=== PATIENT | female | born 1950 | race Caucasian/White ===

== ENCOUNTER 2023-03-08 10:42 | Outpatient (OUT) | payer MEDICARE, SELFPAY ==
--- NOTE | 2023-03-08 10:50 | MM_ITS ---
Patient: EMILIE CONNER Exam Date: 03/08/2023 : 1950 Gender:F Ordering : Non-Staff Physician Admission #: [id number] Family : Order #: [id number] CLICK HERE TO VIEW EXAM RADIOLOGY REPORT PROCEDURE: MM TOMOSYNTHESIS SCREENING BI COMPARISON: MG MAMM SCREEN RAY W CAD, 02/02/2022. MAMMO RT DX, 02/14/2022. INDICATIONS: Screening for malignant neoplasm Calculator Name NCI Breast Cancer Risk Assessment Tool 5 Year Breast Cancer Risk 1.40% Lifetime Breast Cancer Risk 4.00% Personal Breast Cancer No Personal Ovarian Cancer No Treatments None Family Cancers Aunt-maternal with breast cancer at age 38; Father with blood cancer at age 61; Daughter with kidney cancer at age 28. LOCATION: [facility] [place] BREAST COMPOSITION: Scattered areas fibroglandular density. FINDINGS: DIAGNOSTIC CATEGORY 1--NEGATIVE. NO CHANGE FROM COMPARISON ASSESSMENT. Scattered benign-appearing calcifications are present. Scattered benign-appearing lymph nodes are present. RIGHT BREAST: No significant suspicious finding. LEFT BREAST: No significant suspicious finding. RECOMMENDATIONS: ROUTINE MAMMOGRAM AND CLINICAL EVALUATION IN 12 MONTHS. PLEASE NOTE: A NORMAL MAMMOGRAM DOES NOT EXCLUDE THE POSSIBILITY OF BREAST CANCER. A CLINICALLY SUSPICIOUS PALPABLE LUMP SHOULD BE BIOPSIED. Dictated by: Jason Mayorga MD on 03/09/2023 at 08:19 Approved by: Jason Mayorga MD on 03/09/2023 at 08:20
== END 2023-03-08 10:43 | disposition home or self-care (01) ==
LOC: MAMMO 10:45
DX: Z12.31 Encounter for screening mammogram for malignant neoplasm of breast (principal); Z80.3 Family history of malignant neoplasm of breast; Z80.51 Family history of malignant neoplasm of kidney; Z80.8 Family history of malignant neoplasm of other organs or systems
CPT/HCPCS: 77063; 77067

== ENCOUNTER 2024-03-18 09:10 | Outpatient (OUT) | payer MEDICARE, SELFPAY ==
--- OUTSIDE RECORDS SUMMARY | 2024-03-18 09:14 | XMS_ITS | CCD ---
Author Organization [facility] Inform ion Partnership [facility] Care Team Providers Care Straightening Machine Feeder Name Role Phone Bhavesh Jaz Shell Attending Unavailable IlTamie rice Primary Care Unavailable Jocelynn Hinojosa Unavailable Arianne Grubbs Unavailable Garett FRY-ELIZABETH Thanh Primary Care Provider BAJWA, THANH K Referring Unavailable BAJWA, THANH K Primary Care Unavailable BAJWA, THANH Attending Unavailable BAJWA, THANH Referring Unavailable BAJWA, THANH Primary Care Unavailable BAJWA, THANH Attending Unavailable BAJWA, THANH Referring Unavailable BAJWA, THANH Primary Care Unavailable BAJWA, THANH Attending Unavailable BAJWA, THANH Referring Unavailable BAJWA, THANH Primary Care Unavailable Allergies Allergy Classification Reported Allergen(s) Allergy Type Date of Onset Reaction(s) Facility (4 sources) Latex; Translations: [LATEX] Propensity to adverse reactions to drug 3 Other (See Comments) [facility] Medications Current Medications Medication Drug Class(es) Dates Sig (Normalized) Sig (Original) [id number] 200 actuat albuterol 0.09 mg/actuat metered dose inhaler (3 sources) beta2-Adrenergic Agonist Start: 05-28-2023 take 2 puff(s) by inhalation every six hours as needed for wheezing albuterol (PROVENTIL HFA;VENTOLIN HFA) 90 mcg/actuation inhaler Indications: Shortness of breath Inhale 2 puffs every 6 (six) hours as needed for wheezing. 18 g 1 05/28/2023 Active Start: 10-24-2021 take 2 puff(s) by in halation every four hours as needed Albuterol Sulfate HFA 108 (90 Base) MCG/ACT 2 puffs as needed Inhalation every 4 hrs Oct, Active amLODIPine 10 mg oral tablet (2 sources) Dihydropyridine Calcium Channel Victorino Start: 01-23-2024 take 1 tablet by mouth in the morning amLODIPine (NORVASC) 10 mg tablet Take 1 tablet (10 mg total) by mouth in the morning. 90 tablet 3 01/23/2024 Active take 1 tablet by mouth in the mo rning amLODIPine (NORVASC) 10 mg tablet Take 1 tablet (10 mg total) by mouth in the morning. 0 Active amoxicillin 875 mg / clavulanate 125 mg oral tablet (2 sources) Penicillin-class Antibacterial Start: 05-28-2023 End: 06-04-2023 take 1 tablet by mouth once in the morning amoxicillin-pot clavulanate (AUGMENTIN) 875-125 mg per tablet Take 1 tablet by mouth in the morning and 1 tablet before bedtime. Do all this for 7 days. 14 tablet 0 05/28/2023 06/04/2023 Active Start: 08-17-2021 take 1 tablet by emmett th every twelve hours Amoxicillin-Pot Clavulanate 875-125 MG 1 tablet Orally every 12 hrs for 10 day(s) Jul, Active azithromycin 250 mg oral tablet (1 source) Macrolide Antimicrobial Start: 03-05-2024 End: 03-10-2024 take 1 tablet by mouth in the morning, then take 2 tablets by mouth once daily, then take 1 tablet by mouth once daily azithromycin (ZITHROMAX) 250 mg tablet Take 1 tablet (250 mg total) by mouth in the morning for 5 days. Take 2 tablets the first day, then 1 tablet daily for 4 days.. 6 tablet 03/05/2024 03/10/2024 Active calcium carbonate 1250 mg chewable tablet (2 sources) calcium carbonat e (OS-ZI) 500 mg calcium (1,250 mg) chewable tablet Chew 2 tablets (1,000 mg total) and swallow in the morning. Active cholecalciferol 0.125 mg oral capsule (2 sources) Vitamin D Start: 01-24-2024 take 1 capsule by mouth in the morning cholecalciferol, vitamin D3, (VITAMIN D3) 5,000 units capsule Take 1 capsule (5,000 Units total) by mouth in the morning. 90 capsule 01/24/2024 Active take 1 capsule by [facility] in the morning cholecalciferol, vitamin D3, (VITAMIN D3 ) 5,000 units capsule Take 1 capsule (5,000 Units total) by mouth in the morning. 0 Active codeine phosphate 2 mg/ml / guaiFENesin 20 mg/ml oral solution (1 source) Opioid Agonist Start: 10-24-2021 guaiFENesin-Codeine 100-10 MG/5ML 5 ml as needed EVERY [address] OR OPERATE HEAVY MACHINERY Oct, Active fluticasone propionate 0.05 mg/actuat metered dose nasal spray (4 sources) Corticosteroid Start: 02-26-2023 End: 05-28-2023 take 1 spray(s) nasal route in the morning fluticasone propionate (FLONASE) 50 mcg/actuation nasal spray Administer 1 spray into each nostril in the morning. 15.8 mL 05/28/2023 Active Start: 08-17-2021 take 2 spray(s) nasa l route once daily Fluticasone Propionate 50 MCG/ACT 2 sprays Nasally Once a day for 14 day(s) Jul, Active 12 hr guaiFENesin 600 mg extended release oral tablet (1 source) Start: 05-28-2023 End: 06-04-2023 take 1 tablet by mouth once guaiFENesin (MUCINEX) 600 mg tablet extended release 12hr Take 1 tablet (600 mg total) by mouth every 12 (twelve) hours for 7 days. 14 tablet 0 05/28/2023 06/04/2023 Active meloxicam 7.5 mg oral tablet (1 source) Nonsteroidal Anti-inflammatory Drug Start: 01-23-2024 take 1 tablet by mouth in the morning meloxicam (MOBIC) 7.5 mg tablet Take 1 tablet (7.5 mg total) by mouth in the morning. 90 tablet 1 01/23/2024 Active methylPREDNISolone 4 mg oral tablet (5 sources) Corticosteroid Start: 03-05-2024 take 1 tablet by mouth in the morning methylPREDNISolone (MEDROL, MARISOL,) 4 mg tablet Take 1 tablet (4 mg total) by mouth in the morning. follow package directions. 21 tablet 03/05/2024 Active Start: 05-28-2023 End: 03-05-2024 methylPREDNISolone (MEDROL, MARISOL,) 4 mg tablet follow package directions 21 tablet 05/28/2023 03/05/2024 Discontinued (Duplicate Listing) Start: 05-28-2023 methylPREDNISo lone (MEDROL, MARISOL,) 4 mg tablet follow package directions 21 tablet 0 05/28/2023 Active Start: 10-24-2021 methylPREDNISo lone 4 MG as directed Orally Once a day for 6 days Oct, Active Start: 08-17-2021 Medrol 4 MG as directed Orally as directed for 6 days Jul, Active ondansetron 4 mg oral tablet (1 source) Serotonin-3 Receptor Antagonist Start: 10-24-2021 take 1 tablet by mouth every eight hours as needed Zofran ODT 4 MG 1 tablet on the tongue and allow to dissolve Orally every 8 hrs as needed for 4 days Oct, Active pantoprazole 20 mg delayed release oral tablet (1 source) Proton Pump Inhibitor Start: 01-23-2024 take 1 tablet by mouth in the morning pantoprazole (PROTONIX) 20 mg EC tablet Take 1 tablet (20 mg total) by mouth in the morning. 30 tablet 1 01/23/2024 Active rOPINIRole 0.5 mg oral tablet (2 sources) Nonergot Dopamine Agonist Start: 01-23-2024 take 1 tablet by mouth once daily at bedtime rOPINIRole (REQUIP) 0.5 mg tablet Indications: Restless leg Take 1 tablet (0.5 mg total) by mouth once daily at bedtime. 90 tablet 1 01/23/2024 Active Start: 04-30-2023 take 1 tablet by emmett once daily at bedtime rOPINIRole (REQUIP) 0.25 mg tablet Take 1 tablet (0.25 mg total) by mouth once daily at bedtime. 30 tablet 2 04/30/2023 Active vitamin b12 1 mg oral tablet (2 sources) Vitamin B12 take 5 tablets by mouth in the morning cyanocobalamin 1000 MCG tablet Take 5 tablets (5,000 mcg total) by mouth in the morning. Active Problems Active Problems Problem Classification Problem Date Documented Da te Episodic/Chronic Acute bronchitis (2 sources) Acute bronchitis; Translations: [Acute bronchitis, unspecified] 05-28-2023 Episodic Esophageal disorders (2 sources) Gastroesophageal reflux disease without esophagitis; Translations: [Gastro-esophageal reflux disease without esophagitis] Onset: 8 03-13-2018 Chronic Essential hypertension (2 sources) Essential hypertension; Translations: [Essential (primary) hypertension] Onset: 3 01-15-2023 Chronic Headache; including migraine (2 sources) Tension-type headache; Translations: [Tension-type headache, unspecified, not intractable] Onset: 8 04-25-2018 Chronic Nutritional deficiencies (4 sources) Vitamin D deficiency; Translations: [Vitamin D deficiency, unspecified] Onset: 8 07-16-2019 Chronic Nutritional deficiencies (2 sources) Vitamin B deficiency, unspecified; Translations: [Vitamin B deficiency, unspecified] Onset: 4 Episodic Osteoarthritis (3 sources) Degenerative joint disease involving multiple joints; Translations: [Polyosteoarthritis, unspecified] Onset: 0 12-04-2019 Chronic Other bone disease and musculoskeletal deformities (1 source) Other specified disorders of bone density and structure, other site; Translations: [Other specified disorders of bone density and structure, other site] Onset: 4 Episodic Other gastrointestinal disorders (2 sources) Irritable bowel syndrome with diarrhea; Translations: [Irritable bowel syndrome with diarrhea] Onset: 8 03-13-2018 Chronic Other hereditary and degenerative nervous system conditions (2 sources) Restless legs; Translations: [Restless legs syndrome] Onset: 8 03-13-2018 Chronic Other hereditary and degenerative nervous system conditions (2 sources) Restless legs syndrome; Translations: [Restless legs syndrome] Onset: 4 Chronic Other lower respiratory disease (1 source) Dyspnea; Translations: [Shortness of breath] 05-28-2023 Episodic Other non-traumatic joint disorders (2 sources) Finger joint locking; Translations: [Other specific joint derangements of unspecified hand, not elsewhere classified] Onset: 0 12-04-2019 Chronic Other screening for suspected conditions (not mental disorders or infectious disease) (12 sources) Patient encounter status; Translations: [Encounter for screening for lipoid disorders] Onset: 8 Resolved: 8 03-13-2018 Episodic Other upper respiratory disease (1 source) Pain in throat Onset: 4 Episodic Other upper respiratory infections (5 sources) Acute sinusitis, unspecified; Translations: [Acute maxillary sinusitis] Onset: 9 Resolved: 2 Episodic Unclassified (1 source) R21 - Rash and other nonspecific skin eruption; Translations: [R21 - Rash and other nonspecific skin eruption] Onset: 8 Unclassified (1 source) Medicare Annual Wellness Onset: 4 Past or Other Problems Problem Classification Problem Date Documented Date Episodic/Chronic Chronic obstructive pulmonary disease and bronchiectasis (1 source) Bronchitis, not specified as acute or chronic Onset: 2 Resolved: 2 Episodic Immunizations and screening for infectious disease (4 sources) Contact with and (suspected) exposure to other viral communicable diseases; Translations: [At risk of sexually transmitted infection ] Onset: 8 Resolved: 2 Episodic Inflammation; infection of eye (except that caused by tuberculosis or sexually transmitteddisease) (4 sources) Acute conjunctivitis of left eye; Translations: [Unspecified acute conjunctivitis, left eye] Onset: 8 Resolved: 0 10-27-2019 Episodic Influenza (1 source) Influenza due to other identified influenza virus with other respiratory manifestations Onset: 2 Resolved: 2 Episodic Mood disorders (2 sources) Mood disorders Onset: 3 Resolved: 4 01-15-2023 Osteoporosis (2 sources) Senile osteoporosis; Translations: [Age-related osteoporosis without current pathological fracture] Onset: 8 Resolved: 9 08-08-2018 Chronic Other connective tissue disease (2 sources) Lateral epicondylitis of right humerus; Translations: [Lateral epicondylitis, right elbow] Onset: 8 Resolved: 9 08-08-2018 Episodic Other liver diseases (2 sources) Scleral icterus; Translations: [Unspecified jaundice] Onset: 0 Resolved: 0 10-27-2019 Episodic Other lower respiratory disease (1 source) Shortness of breath; Translations: [Shortness of breath] Onset: 4 Episodic Other lower respiratory disease (1 source) Cough Onset: 4 Episodic Other non-traumatic joint disorders (2 sources) Metacarpophalangeal joint pain; Translations: [Pain in joints of left hand] Onset: 0 12-04-2019 Episodic Skin and subcutaneous tissue infections (2 sources) Cellulitis of periorbital region of left eye; Translations: [Periorbital cellulitis] Onset: 0 Resolved: 0 10-27-2019 Episodic Results Test Name Value Interpretation Reference Range Facility POCT rapid strep Aon 024 Internal Head [employer] [facility] Com[facility]ed [facility] Interpretation and review of laboratory results Normal [facility] S. pyogenes Ag IA Ql (Unsp spec) Negative Negative [facility] CBC AND AUTO DIFFon 01-24-20 24 ABSOLUTE BASOPHIL 0.1 X10E9/L Normal 0.0-0.2 [facility] Comment on above: Performed By: #### Angel MENDENHALL [facility], 78610-5, 2132-01, 55300-9 #### [facility] ([id number]) [address] [facility] [address] [place] [address] ABSOLUTE NEUTROPHIL 2.4 X10E9/L Normal 1.5-6.6 [facility] Comment on above: Performed By: #### Angel MENDENHALL [facility], 81394-3, 2132-01, 90128-1 #### [facility] ([id number]) [address] [place] [address] Basophils/100 WBC (Bld) 1.1 % Normal [facility] Comment on above: Performed By: #### Angel MENDENHALL [facility], 68233-9, 2132-01, 10502-4 #### [facility] ([id number]) [address] [place] [address] Eosinophils (Bld) [#/Vol] 0.2 10*3/uL Normal 0.0-0.4 [facility] Comment on above: Performed By: #### C BCA, CMP, 20986-4, 2132-01, 20492-1 #### [facility] ([id number]) [address], [address] [place] [address] Eosinophils/100 WBC (Bld) 3.7 % Normal [facility] Comment on above: Performed By: #### C BCA, CMP, 13962-1, 2132-01, 58416-9 #### [facility] ([id number]) [address] [place] [address] Erythrocyte distribution width (RBC) [Ratio] 15.0 % Normal 11.5-15.0 [facility] Comment on above: Performed By: #### C BCA, CMP, 04346-9, 2132-01, 61207-9 #### [facility] ([id number]) [address] [place] [address] Hematocrit (Bld) [Volume fraction] 36.2 % Normal 35-47 [facility] Comment on above: Performed By: #### C BCA, CMP, , 2132-01, 11845-9 #### [facility] ([id number]) [address], [facility] [address] [place] [address] Hemoglobin (Bld) [Mass/Vol] 12.4 g/dL Normal 11.7-15.5 [facility] Comment on above: Performed By: #### C BCA, CMP, 07302-0, 2132-01, 56694-1 #### [facility] ([id number]) [address] [place] [address] Lymphocytes (Bld) [#/Vol] 1.9 10*3/uL Normal 1.0-3.5 [facility] Comment on above: Performed By: #### C BCA, CMP, 96366-6, 2132-01, 27310-5 #### [facility] ([id number]) [address] [place] [address] Lymphocytes/100 WBC (Bld) 38.3 % Normal [facility] Comment on above: Performed By: #### Angel MENDENHALL CMP, 34231-6, 2132-01, 81075-3 #### [facility] ([id number]) [address], [facility] [address] [place] [address] MCH (RBC) [Entitic mass] 27.9 pg Normal 27-34 [facility] Comment on above: Performed By: #### C ZA, CMP, , 2132-01, 85988-1 #### [facility] ([id number]) [address] [place] [address] MCHC (RBC) [Mass/Vol] 34.3 g/dL Normal 32-36 [facility] Comment on above: Performed By: #### Angel BCA, CMP, , 2132-01, 73927-0 #### [facility] ([id number]) [address] [place] [address] MCV (RBC) [Entitic vol] 81 fL Normal 80-100 [facility] Comment on above: Performed By: #### Angel MENDENHALL, CMP, , 2132-01, 50205-9 #### [facility] ([id number]) [address] [place] [address] Monocytes (Bld) [#/Vol] 0.4 10*3/uL Normal 0-0.9 [facility] Comment on above: Performed By: #### Angel BCA, CMP, , 2132-01, 71019-8 #### [facility] ([id number]) [address] [place] [address] Monocytes/100 WBC (Bld) 8.6 % Normal [facility] Comment on above: Performed By: #### Angel BCA, CMP, , 2132-01, 24209-5 #### [facility] ([id number]) [address] [place] [address] Neutrophils/100 WBC (Bld) 48.3 % Normal [facility] Comment on above: Performed By: #### C BCA, CMP, 92167-3, 9, 44427-7 #### [facility] ([id number]) [address] [place] [address] Platelet mean volume (Bld) [Entitic vol] 7.6 fL Normal 7-12 [facility] Comment on above: Performed By: #### C BCA, CMP, 49274-2, 2132-01, 35591-4 #### [facility] ([id number]) [address] [place] [address] Platelets (Bld) [#/Vol] 289 10*3/uL Normal 150-450 [facility] Comment on above: Performed By: #### C BCA, CMP, 44953-4, 2132-01, 04872-7 #### [facility] ([id number]) [address], [address] [place] [address] RBC COUNT 4.45 X10E12/L Normal 3.80-5.20 [facility] Comment on above: Performed By: #### C BCA, CMP, 61734-9, 2132-01, 47952-8 #### [facility] ([id number]) [address] [place] [address] WBC (Bld) [#/Vol] 5.1 10*3/uL Normal 4.0-11.0 [facility] Comment on above: Performed By: #### C BCA, CMP, 90382-8, 9, 50879-6 #### [facility] ([id number]) [address] [place] [address] COMPREHENSIVE METABOLIC PANE Dann 01-24-2024 Albumin [Mass/Vol] 4.2 g/dL Normal 3.2-5.3 [facility] Comment on above: Performed By: #### C BCA, CMP, 20588-2, 2132-01, 88481-7 #### [facility] ([id number]) [address] [place] [address] ALP [Catalytic activity/Vol] 93 U/L Normal 39-130 [facility] Comment on above: Performed By: #### C BCA, CMP, 54852-3, 9, 02930-6 #### [facility] ([id number]) [address] [place] [address] ALT [Catalytic activity/Vol] 23 U/L Normal 0-31 [facility] Comment on above: Performed By: #### C BCA, CMP, 72864-5, 2132-01, 32339-1 #### [facility] ([id number]) [address] [place] [address] Anion gap [Moles/Vol] 7 mmol/L Normal 5-15 [facility] Comment on above: Performed By: #### C BCA, CMP, 42075-9, 2132-01, 66127-9 #### [facility] ([id number]) [address] [place] [address] AST [Catalytic activity/Vol] 24 U/L Normal 0-41 [facility] Comment on above: Performed By: #### C BCA, CMP, 78829-8, 2132-01, 32407-7 #### [facility] ([id number]) [address] [place] [address] Bilirubin [Mass/Vol] 1.0 mg/dL Normal 0.3-1.2 [facility] Comment on above: Performed By: #### C BCA, CMP, 93055-5, 2132-01, 29256-2 #### [facility] ([id number]) [address] [place] [address] Calcium [Mass/Vol] 9.0 mg/dL Normal 8.5-10.5 [facility] Comment on above: Performed By: #### C BCA, CMP, 28701-3, 2132-01, 60879-9 #### [facility] ([id number]) [address] [place] [address] Chloride [Moles/Vol] 103 mmol/L Normal 98-109 [facility] Comment on above: Performed By: #### C BCA, CMP, 90965-3, 2132-01, 57653-3 #### [facility] ([id number]) [address] [place] [address] CO2 [Moles/Vol] 30 mmol/L Normal 22-32 [facility] Comment on above: Performed By: #### C BCA, CMP, 08708-6, 2132-01, 41369-5 #### [facility] ([id number]) [address] [place] [address] Creatinine [Mass/Vol] 0.72 mg/dL Normal 0.40-1.00 [facility] Comment on above: Result Comment: METH OD TRACEABLE TO IDMS STANDARD Performed By: #### C BCA, CMP, 30061-7, 2132-01, 65179-4 #### [facility] ([id number]) [address] [place] [address] GFR/1.73 sq M.predicted among non-blacks MDRD (S/P/Bld) [Vol rate/Area] 89 mL/min/{1.73_m2} Normal >59 [facility] Comment on above: Result Comment: Reported eGFR is based on the CKD-EPI 2020 equation that does not use a race coefficient. Performed By: #### C BCA, CMP, 01887-9, 2132-01, 13692-5 #### [facility] ([id number]) [address] [place] [address] Glucose [Mass/Vol] 102 mg/dL High 65-99 [facility] Comment on above: Performed By: #### C BCA, CMP, , 2132-01, 82940-7 #### [facility] ([id number]) [address] [place] [address] Potassium [Moles/Vol] 3.7 mmol/L Normal 3.5-5.0 [facility] Comment on above: Performed By: #### C BCA, CMP, , 2132-01, 29373-0 #### [facility] ([id number]) [address] [place] [address] Protein [Mass/Vol] 7.0 g/dL Normal 6.0-8.0 [facility] Comment on above: Performed By: #### C BCA, CMP, , 2132-01, 23608-4 #### [facility] ([id number]) [address] [place] [address] Sodium [Moles/Vol] 140 mmol/L Normal 134-146 [facility] Comment on above: Performed By: #### C BCA, CMP, , 2132-01, 64574-9 #### [facility] ([id number]) [address] [place] [address] Urea nitrogen [Mass/Vol] 19 mg/dL Normal 5-27 [facility] Comment on above: Performed By: #### C BCA, CMP, , 2132-01, 03563-4 #### [facility] ([id number]) [address] [place] [address] Lipid 1996 panelon 4 Cholesterol [Mass/Vol] 191 mg/dL Normal 150-200 [facility] Comment on above: Performed By: ###Isacc Ortiz BCA, CMP, , 2132-01, 44413-7 #### [facility] ([id number]) [address] [place] [address] Cholesterol in HDL [Mass/Vol] 57 mg/dL Normal >39 [facility] Comment on above: Result Comment: HDL <40 mg/dL - High Risk HDL > or = 40mg/dL- Desirable HDL >60 mg/dL - Negative Risk Performed By: #### Angel MENDENHALL, CMP, , 2132-01, 48639-1 #### [facility] ([id number]) [address] [place] [address] Cholesterol in LDL [Mass/Vol] 120 mg/dL Normal <130 [facility] Comment on above: Result Comment: LDL <100 mg/dL - Desirable LDL >160 mg/dL - High Risk Performed By: ###Isacc Ortiz BCA, CMP, , 2132-01, 71827-0 #### [facility] ([id number]) [address] [place] [address] Cholesterol in VLDL [Mass/Vol] 14 mg/dL Normal 0-30 [facility] Comment on above: Performed By: ###Isacc Ortiz BCA, CMP, , 2132-01, 40296-7 #### [facility] ([id number]) [address] [place] [address] CHOLESTEROL:HDL 3.4 Normal 1.0-5.0 [facility] Comment on above: Performed By: #### C ZA THUAN, 64171-3, 2132-01, 87556-3 #### [facility] ([id number]) [address] [address] [place] [address] Triglyceride [Mass/Vol] 70 mg/dL Normal 27-150 [facility] Comment on above: Performed By: #### Angel MENDENHALL CMP, 32729-4, 2132-01, 48443-2 #### [facility] ([id number]) [address] [place] [address] VITAMIN B12on 01-24-2024 Cobalamin (Vitamin B12) [Mass/Vol] 406 pg/mL Normal 180-914 [facility] Comment on above: Performed By: #### Angel MENDENHALL CMP, 13637-2, 2132-01, 91075-2 #### [facility] ([id number]) [address] [place] [address] Vitamin D+Metabolites [Mass/ Vol]on 01-24-2024 VITAMIN D 25 HYD TOT 28.4 ng/mL Low 30-100 [facility] Comment on above: Result Comment: Vitamin D status 25 [place] Vitamin D Deficiency <20 ng/mL Insufficiency 20-29 ng/mL Sufficiency 30-100 ng/mL Toxicity >100 ng/mL NOTE: A pediatric reference range has not been established by the sheriff sergeant of this kit. The [place] [employer] recommends a Vitamin D level of = or >20ng/mL in infants and children. Performed By: #### C ZA THUAN, 85309-1, 2132-01, 91325-1 #### [facility] ([id number]) [address] [place] [address] MRI Foot w/o + w/ Righton MRI Foot w/o + w/ Right HISTORY: Plantar foot mass. TECHNIQUE: Routine MRI of the right foot with and without contrast. Given 11 mL of intravenous ProHance. COMPARISON: Radiograph 02/02/2022. RESULT: Bone Marrow: No evidence for fracture or suspicious marrow replacing process. No suspicious enhancement after contrast. Subcutaneous Tissues: Unremarkable. Joints: Mild to moderate degenerative changes first MTP joint. No significant joint effusion. Tendons: Flexor and extensor tendons are within normal limits. Plantar Plates: Plantar plates are intact-appearing. Intermetatarsal Spaces: No evidence of Cornelius's neuroma. Lisfranc Ligament: Intact. Plantar Aponeurosis: Corresponding to the marker, focal nodular thickening involving the central band of the plantar fascia within the midfoot, measuring around 9 mm in transverse dimension, consistent with plantar fascial fibroma. No evidence for tear. Proximal portion not imaged on this study. Muscles: Muscle bulk and signal intensity are within normal limits. Other: No other significant abnormality IMPRESSION: Plantar fascial fibroma corresponding to the marker. Report reported and signed by Jasson Hoffmann on 2022 1349 Normal [facility] [employer] COVID Quick Testingon 2021 Result Negative [employer] Other Quick Fluon 10-24-2021 FLUAV Ab CF (S) [Titer] Positive [employer] Other FLUBV Ab CF (S) [Titer] Negative [employer] Other Quick Strepon 10-24-2021 S. pyogenes Org specific cx Ql (Throat) Negative [employer] Other Quick Strep [employer] Other COVID Quick Testingon 2021 Result Negative [employer] Other Quick Fluon 08-17-2021 FLUAV Ab CF (S) [Titer] Negative [employer] Other FLUBV Ab CF (S) [Titer] Negative [employer] Other Vital Signs Date Time Vital Sign Value Performing Clinician Facility 03-05-2024 09:35-0400 Body height 152.4 cm Thanh Bajwa APRN-FOOD PRODUCT INSPECTOR Work Phone: [facility] 03-05-2024 09:35-0400 Body mass index (BMI) [Ratio] 23.71 kg/m2 Thanh Bajwa ADMIN ASST-FOOD PRODUCT INSPECTOR Work Phone: [facility] 03-05-2024 09:35-0400 Body temperature 97.7 [degF] Thanh Bajwa ADMIN ASST-FOOD PRODUCT INSPECTOR Work Phone: [facility] 03-05-2024 09:35-0400 Body weight 55.07 kg Thanh Bajwa ADMIN ASST-FOOD PRODUCT INSPECTOR Work Phone: [facility] 03-05-2024 09:35-0400 Diastolic blood pressure 68 mm[Hg] Thanh Bajwa ADMIN ASST-FOOD PRODUCT INSPECTOR Work Phone: [facility] 03-05-2024 09:35-0400 Heart rate 67 /min Thanh Bajwa ADMIN ASST-FOOD PRODUCT INSPECTOR Work Phone: [facility] 03-05-2024 09:35-0400 SaO2% (BldA) [Mass fraction] 98 % Thanh Bajwa ADMIN ASST-FOOD PRODUCT INSPECTOR Work Phone: [facility] 03-05-2024 09:35-0400 Systolic blood pressure 122 mm[Hg] Thanh Bajwa ADMIN ASST-FOOD PRODUCT INSPECTOR Work Phone: [facility] 05-28-2023 11:44-0500 Body height 152.4 cm Thanh Bajwa ADMIN ASST-FOOD PRODUCT INSPECTOR Work Phone: [facility] 05-28-2023 11:44-0500 Body mass index (BMI) [Ratio] 23.36 kg/m2 Thanh Bajwa ADMIN ASST-FOOD PRODUCT INSPECTOR Work Phone: [facility] 05-28-2023 11:44-0500 Body temperature 98.2 [degF] Thanh Bajwa ADMIN ASST-FOOD PRODUCT INSPECTOR Work Phone: [facility] 05-28-2023 11:44-0500 Body weight 54.25 kg Thanh Bajwa APRNBRANT Work Phone: [employer] 05-28-2023 11:44-0500 Diastolic blood pressure 74 mm[Hg] Thanh Bajwa APRNBRANT Work Phone: [employer] 05-28-2023 11:44-0500 Heart rate 81 /min Thanh Bajwa APRNBRANT Work Phone: [employer] 05-28-2023 11:44-0500 SaO2% (BldA) [Mass fraction] 98 % Thanh Bajwa APRNBRANT Work Phone: [employer] 05-28-2023 11:44-0500 Systolic blood pressure 128 mm[Hg] Thanh Bajwa APRNBRANT Work Phone: [employer] 10-24-2021 10:50-0400 Body height 152.4 cm Arianne Grubbs Other [employer] Other 10-24-2021 10:50-0400 Body mass index (BMI) [Ratio] 24.41 kg/m2 Arianne Grubbs Other [employer] Other 10-24-2021 10:50-0400 Body temperature 98.7 [degF] Arianne Grubbs Other [employer] Other 10-24-2021 10:50-0400 Body weight 56.7 kg Arianne Romie Other [employer] Other 10-24-2021 10:50-0400 Respiratory rate 18 /min Arianne Grubbs Other [employer] Other 10-24-2021 10:50-0400 SaO2% (BldA) [Mass fraction] 97 % Arianne Grubbs Other [employer] Other 08-17-2021 15:50-0400 Body height 152.4 cm Jocelynn Hinojosa Other [employer] Other 08-17-2021 15:50-0400 Body mass index (BMI) [Ratio] 24.41 kg/m2 Jocelynn Hinojosa Other [employer] Other 08-17-2021 15:50-0400 Body temperature 97.8 [degF] Jocelynn Hinojosa Other [employer] Other 08-17-2021 15:50-0400 Body weight 56.7 kg Jocelynn Hinojosa Other [employer] Other 08-17-2021 15:50-0400 Respiratory rate 18 /min Jocelynn Hinojosa Other [employer] Other 08-17-2021 15:50-0400 SaO2% (BldA) [Mass fraction] 97 % Jocelynn Hinojosa Other [employer] Other Encounters Encounter Date Encounter Type Care Provider Facility Start: 03-05-2024 End: 03-05-2024 Office outpatient visit 10 minutes [facility] ADMIN ASST-FOOD PRODUCT INSPECTOR Work Phone: [facility] Comment on above: Acute bronchitis, un specified organism (Primary Dx); Pharyngitis, unspecified etiology Start: 03-05-2024 End: 03-05-2024 ambulatory [facility] Start: 01-24-2024 End: 01-24-2024 ambulatory [facility] Start: 01-24-2024 Encounter for genera l adult medical examination without abnormal findings [facility] Start: 01-23-2024 End: 01-23-2024 ambulatory [facility] Start: 01-23-2024 Encounter for genera l adult medical examination without abnormal findings [facility] Start: 05-28-2023 End: 05-28-2023 Office outpatient visit 10 minutes Thanh Bajwa ADMIN ASST-FOOD PRODUCT INSPECTOR Work Phone: [facility] Comment on above: Shortness of breath (Primary Dx); Acute non-recurrent maxillary sinusitis; Acute bronchitis, unspecified organism Start: 05-28-2023 End: 05-28-2023 ambulatory [facility] Start: 10-24-2021 End: 10-24-2021 ambulatory Arianne Grubbs Other [employer] Other Start: 10-24-2021 Office outpatient vi sit 15 minutes Arianne Grubbs [facility] Start: 08-17-2021 (URG) Urgent Care Visit Joceylnn daniels [facility] Start: 08-17-2021 End: 08-17-2021 ambulatory Jocelynn Hinojosa Other [employer] Other Start: 04-26-2018 End: 04-26-2018 Patient encounter procedure Jaz Ospina Facility:[facility] Start: 04-25-2018 Patient encounter procedure Thanh Bajwa ADMIN ASST-FOOD PRODUCT INSPECTOR Work Phone: [facility] Procedures Date Procedure Procedure Detail Performing Clinician Start: 03-05-2024 Iaadiadoo streptococ cus group a Thanhgonzalez Bajwa ADMIN ASST-FOOD PRODUCT INSPECTOR Work Phone: Start: 01-23-2024 Adult depression scr eening assessment Thanhgonzalez Bajwa ADMIN ASST-FOOD PRODUCT INSPECTOR Work Phone: Start: 01-15-2023 Adult depression scr eening assessment Thanh Bajwa ADMIN ASST-FOOD PRODUCT INSPECTOR Work Phone: Start: 08-30-2022 Colonoscopy Thanh Bajwa ADMIN ASST-FOOD PRODUCT INSPECTOR Work Phone: Plan of Treatment Date Care Activity Detail Author Start: 08-30-2032 Screening for malignant neoplasm of colon Colonoscopy [facility] Start: 03-05-2025 Adult BMI Screening Adult BMI Screening [facility] Start: 03-05-2025 Tobacco Screening Tobacco Screening [facility] Start: 01-22-2025 Depression Screening Depression Screening [facility] Start: 01-22-2025 Fall Risk Screening Fall Risk Screening [facility] Start: 01-22-2025 Medicare Annual Wellness Visit Medicare Annual Wellness Visit [facility] Start: 06-12-2024 DTaP,Tdap and Td Vaccines (2 - Td or Tdap) DTaP,Tdap and Td Vaccines (2 - Td or Tdap) [facility] Start: 05-28-2024 Adult BMI Screening Adult BMI Screening [facility] Start: 05-28-2024 Tobacco Screening Tobacco Screening [facility] Start: 04-23-2024 End: 04-23-2024 Patient encounter procedure 04/23/2024 8:00 AM EST Office Visit [facility] [address] [place] [id number] Thanh Bajwa APRN-CNP [address] [place] [id number] [facility] Start: 01-20-2024 COVID-19 Vaccine ( season) COVID-19 Vaccine ( season) [facility] Start: 01-20-2024 Influenza vaccination Influenza Vaccine [facility] Start: 01-16-2024 Depression Screening Depression Screening [facility] Start: 01-16-2024 Fall Risk Screening Fall Risk Screening [facility] Start: 01-16-2024 Medicare Annual Wellness Visit Medicare Annual Wellness Visit [facility] Start: 01-19-2023 Influenza vaccination Influenza Vaccine [facility] Start: 02-08-2002 Administration of varicella zoster vaccine Zoster (Shingles) Vaccine (1 of 2) [facility] Immunizations Immunization Date Immunization Notes Care Provider Ivette steven 12-19-2018 measles, mumps and rubella virus vaccine Thanh Bajwa ADMIN ASST-FOOD PRODUCT INSPECTOR Work Phone: [employer] 06-12-2014 tetanus toxoid, reduced diphtheria toxoid, and acellular pertussis vaccine, adsorbed Thanh Bajwa ADMIN ASST-FOOD PRODUCT INSPECTOR Work Phone: [employer] NEGATED: Highlighted row has not occurred!08-08-2018 influenza virus vaccine, unspecified formulation Thanh Bajwa ADMIN ASST-FOOD PRODUCT INSPECTOR Work Phone: [employer] Comment on above: Deferred: Patient Re fused NEGATED: Highlighted row has not occurred!08-08-2018 pneumococcal conjugate vaccine, 7 valent Thanh Bajwa ADMIN ASST-FOOD PRODUCT INSPECTOR Work Phone: [employer] Comment on above: Deferred: Patient Re fused NEGATED: Highlighted row has not occurred!08-08-2018 zoster vaccine, live Thanh Bajwa ADMIN ASST-FOOD PRODUCT INSPECTOR Work Phone: [employer] Comment on above: Deferred: Patient Re fused NEGATED: Highlighted row has not occurred!08-01-2018 pneumococcal conjugate vaccine, 13 valent Thanh Bajwa ADMIN ASST-FOOD PRODUCT INSPECTOR Work Phone: [employer] Comment on above: Deferred: Patient Re fused Payers Date Payer Category Payer Medicare ANTHEM MEDICARE [facility] MEDICARE ADVANTAGE [id number] 2020-Present [phone] [address] [place] [address] [id number] 2020 Medicare HMO [facility] MEDICARE [id number] 2020 Medicare [id number] 2018 Medicare [id number] 2018 Self-pay 2018 Unknown [id number] 1950 Unknown [id number] 1950 Unknown [id number] 1950 Unknown [id number] 6 1950 Unknown [id number] 6 Medicare [id number] Unknown [id number] Social History Date Type Detail Facility Start: 06-11-2020 End: 05-28-2023 Sex Assigned At [facility] [employer] Other Start: 04-03-2022 Tobacco smoking stat [facility] Never smoked tobacco [facility] Start: 04-03-2022 Tobacco use and exposure Smokeless tobacco non-user [facility] Start: 05-28-2023 End: 03-05-2024 Alcohol intake Ex-drinker (finding) [facility] Start: 06-11-2020 End: 05-28-2023 History of Social function [facility] Adolescent depressio n screening assessment 3 [facility] Start: 1950 Sex Assigned At Not on file P [facility] Start: 12-24-2014 Sex Female (finding) [facility] History of Present illness Narrative 03-05-2024 Thanh Bajwa, ADMIN ASST-FOOD PRODUCT INSPECTOR - 03/05/2024 9:40 AM EDT Note Date & Type Note Facility 03-05-2024 History of Present illness Narrative Subjective Patient ID: Dora Cortez is a 74 y.o. female. CC:cough and throat pain HPI Dora presents to the office for sick visit. She reports her grand children tested positive for strep yesterday and she was watching them. States she began with cough and trouble swallowing for the last two days. Mentions she is unable to bring out any phlegm as she feels everything is stuck in her chest and feels like throat is on fire. She denies any fever or chills. States she tried ibuprofen and did not bring any relieve. Denies fever, myalgia, fatigue, chest pain. Reports some nausea. The following portions of the patient's history were reviewed and updated as appropriate: allergies, current medications, past medical history, past social history, past surgical history, problem list, and medication reconciliation was completed including current medication and post discharge medication. Review of Systems Constitutional: Negative for activity change, appetite change, chills and fever. HENT: Positive for congestion, sinus pressure, sore throat and voice change. Negative for ear pain. Eyes: Negative. Respiratory: Positive for cough and wheezing. Cardiovascular: Negative for chest pain. Gastrointestinal: Positive for nausea. Negative for vomiting. Endocrine: Negative. Musculoskeletal: Negative for myalgias. Neurological: Negative for headaches. Psychiatric/Behavioral: Negative. Objective Physical Exam Vitals and nursing note reviewed. Constitutional: Appearance: Normal appearance. HENT: Right Ear: Tympanic membrane and external ear normal. Left Ear: Tympanic membrane and external ear normal. Nose: Congestion present. Mouth/Throat: Mouth: Mucous membranes are moist. Pharynx: Posterior oropharyngeal erythema present. No oropharyngeal exudate. Eyes: Extraocular Movements: Extraocular movements intact. Conjunctiva/sclera: Conjunctivae normal. Cardiovascular: Rate and Rhythm: Normal rate and regular rhythm. Pulses: Normal pulses. Pulmonary: Breath sounds: Wheezing present. Musculoskeletal: General: Normal range of motion. Right lower leg: No edema. Left lower leg: No edema. Lymphadenopathy: Cervical: Cervical adenopathy present. Right cervical: Superficial cervical adenopathy present. Left cervical: Superficial cervical adenopathy present. Neurological: Mental Status: She is alert. Psychiatric: Mood and Affect: Mood normal. Behavior: Behavior normal. Assessment/Plan Dora was seen for throat pain and cough today. Poct strep- negative Treatment sent in for bronchitis and wheezing Azithromycin Medrol marislo Continue symptomatic treatment. She will let me know if symptoms do not improve. Dora was seen today for sore throat. Diagnoses and all orders for this visit: Acute bronchitis, unspecified organism Pharyngitis, unspecified etiology - POCT rapid strep A Other orders - azithromycin (ZITHROMAX) 250 mg tablet; Take 1 tablet (250 mg total) by mouth in the morning for 5 days. Take 2 tablets the first day, then 1 tablet daily for 4 days.. - methylPREDNISolone (MEDROL, MARISOL,) 4 mg tablet; Take 1 tablet (4 mg total) by mouth in the morning. follow package directions. SHAINA Ogden 03/05/24 [id number] documented in this encounter [facility] History of Present illness Narrative 05-28-2023 SHAINA Ogden - 05/28/2023 11:45 AM EST Note Date & Type Note Facility 05-28-2023 History of Present illness Narrative Subjective Patient ID: Dora Cortez is a 73 y.o. female. HPI Dora presents to the office today for sick visit. She reports she has been sick fro 13 days now. Sick since 05/16. Despite trying OTC medications and home remedies, sickness continues. Symptoms include: Cough, shortness of breath, sore throat, chest tightness, myalgias and fatigue. Nasal drainage is mostly clear when she is able to get anything out. She reports she is not producing phlegm with cough. Covid tested X2 negative. The following portions of the patient's history were reviewed and updated as appropriate: allergies, current medications, past family history, past medical history, past social history, past surgical history, problem list, and medication reconciliation was completed including current medication and post discharge medication. Review of Systems Constitutional: Positive for fatigue. Negative for chills, diaphoresis, fever and unexpected weight change. HENT: Positive for congestion, postnasal drip, rhinorrhea and sore throat. Respiratory: Positive for cough, chest tightness and shortness of breath. Negative for wheezing. Cardiovascular: Negative for chest pain, palpitations and leg swelling. Gastrointestinal: Negative for abdominal pain. Genitourinary: Negative for dysuria. Musculoskeletal: Positive for myalgias. Skin: Negative. Objective Physical Exam Vitals and nursing note reviewed. Constitutional: General: She is not in acute distress. Appearance: Normal appearance. She is not ill-appearing. HENT: Head: Normocephalic and atraumatic. Right Ear: Tympanic membrane, ear canal and external ear normal. Left Ear: Tympanic membrane, ear canal and external ear normal. Nose: Congestion present. Right Sinus: Maxillary sinus tenderness present. Left Sinus: Maxillary sinus tenderness present. Mouth/Throat: Mouth: Mucous membranes are moist. Pharynx: Oropharynx is clear. No oropharyngeal exudate or posterior oropharyngeal erythema. Neck: Vascular: No carotid bruit. Cardiovascular: Rate and Rhythm: Normal rate and regular rhythm. Pulses: Normal pulses. Heart sounds: Normal heart sounds. No murmur heard. Pulmonary: Breath sounds: Wheezing and rhonchi present. Comments: Her lungs sound tight with few scattered wheezes to left. Abdominal: Palpations: Abdomen is soft. Musculoskeletal: Cervical back: No rigidity or tenderness. Lymphadenopathy: Cervical: No cervical adenopathy. Skin: Capillary Refill: Capillary refill takes less than 2 seconds. Findings: No erythema or rash. Neurological: Mental Status: She is alert. Assessment/Plan Her lungs are tight and since she has been sick for almost two weeks, I will send in steroid pack and treat for bronchitis/sinusitis. She will call the office if symptoms do not improve. Dora was seen today for cough. Diagnoses and all orders for this visit: Shortness of breath - albuterol (PROVENTIL HFA;VENTOLIN HFA) 90 mcg/actuation inhaler; Inhale 2 puffs every 6 (six) hours as needed for wheezing. Acute non-recurrent maxillary sinusitis Acute bronchitis, unspecified organism Other orders - fluticasone propionate (FLONASE) 50 mcg/actuation nasal spray; Administer 1 spray into each nostril in the morning. - guaiFENesin (MUCINEX) 600 mg tablet extended release 12hr; Take 1 tablet (600 mg total) by mouth every 12 (twelve) hours for 7 days. - amoxicillin-pot clavulanate (AUGMENTIN) 875-125 mg per tablet; Take 1 tablet by mouth in the morning and 1 tablet before bedtime. Do all this for 7 days. - methylPREDNISolone (MEDROL, MARISOL,) 4 mg tablet; follow package directions SHAINA Ogden 05/28/23 [id number] documented in this encounter [facility] Evaluation note 10-24-2021 Note Date & Type Note Facility 10-24-2021 Evaluation note Encounter Date Diagnosis Assessment Notes Oct, Contact with and (suspected) exposure to other viral communicable diseases (ICD-10 - Z20.828) Oct, Influenza A (ICD-10 - J10.1) Symptoms presented today are related to the Flu. May use OTC medications such as Mucinex DM, Flu meds, etc. Kids can use Dimatapp or Delsym. Continue tylenol/ibu for general discomfort. Encourage fluids. Antibiotics will not treat the flu. Symptoms should improve within the next 4-7 days. Oct, Bronchitis (ICD-10 - J40) Take medications as directed. Rest and increase fluid intake. Take meds with food to prevent stomach upset. Use inhaler as needed for coughing spells and SOB. It is better to use inhaler a few times a day over the next 2-3 days. Follow up with primary care provider if symptoms do not improve with treatment plan, although it may take a few weeks for the cough to go away Oct, Other Additional time spent conducting pre-visit phone call, screening for symptoms, instructions on social distancing, application and removal of PPE, and cleaning of examination room, equipment and supplies was preformed. Patient education given for testing methodology and results. Patient care instructions given in writting by [facility] document. [employer] Other Evaluation note 08-17-2021 Note Date & Type Note Facility 08-17-2021 Evaluation note Encounter Date Diagnosis Assessment Notes Jul, Contact with and (suspected) exposure to other viral communicable diseases (ICD-10 - Z20.828) Jul, Acute sinusitis, recurrence not specified, unspecified location (ICD-10 - J01.90) Drink plenty fluids, get plenty of rest. Take the Augmentin and Medrol Dosepak as prescribed until gone. Use the Flonase inhaler as prescribed until your symptoms improve. Follow-up with your family physician if no improvement in 3 to 5 days. Take Tylenol Motrin for aches pains or fevers. Jul, Other Additional time spent conducting pre-visit phone call, screening for symptoms, instructions on social distancing, application and removal of PPE, and cleaning of examination room, equipment and supplies was preformed. Patient education given for testing methodology and results. Patient care instructions given in writting by [facility] document. [employer] Other Evaluation note Note Date & Type Note Facility Evaluation note Diagnosis Shortness of breath- Primary Acute non-recurrent maxillary sinusitis Acute bronchitis, unspecified organism documented in this encounter [facility] Evaluation note Note Date & Type Note Facility Evaluation note Diagnosis Acute bronchitis, unspecified organism- Primary Pharyngitis, unspecified etiology documented in this encounter [facility] History general Narrative - Reported Note Date & Type Note Facility History general Narrative - Reported Type Medical History osteoporosis Medical History arthritis Surgical History hysterectomy Surgical History cholecystectomy Surgical History wisdom teeth Surgical History colonoscopy Surgical History t & a Hospitalization History see above [employer] Other Instructions Note Date & Type Note Facility Instructions Not on filedocumented in this en counter [facility] Instructions Note Date & Type Note Facility Instructions Not on filedocumented in this en counter [facility] Summary Purpose Family History No Family History Records FoundNo Family History Records FoundNo Family History Records FoundNo Family History Records Found Advance Directives No Advanced Directives Records FoundNo Advanced Directives Records FoundNo Advanced Directives Records FoundNo Advanced Directives Records Found Additional Source Comments INFORMATION SOURCE (unrecogn ized section and content) DATE CREATED AUTHOR 07/09/2018 [facility] DATE CREATED AUTHOR AUTHOR'S ORGANIZ ATION 02/19/2022 [facility] dical Specialist DATE CREATED AUTHOR AUTHOR'S ORGANIZ ATION 01/25/2024 [facility] DATE CREATED AUTHOR AUTHOR'S JASWINDER MONROY 03/07/2024 [facility] REASON FOR VISIT (unrecogniz ed section and content) Reason Comments Cough Shortness of Breath Reason Comments Sore Throat X3 days, grandkids h ave Strep Care Teams (unrecognized sec tion and content) Straight[employer] Machine Feeder Relationship Specialty Start Date End Date Thanh Bajwa APRN-ELIZABETH PCP - General Nurse Practitioner 11/08/22 Straightening Machine Feeder Relationship Specialty Start Date End Date Thanh Bajwa APRN-ELIZABETH PCP - General Nurse Practitioner 11/08/22 FOR RECORDS PERTAINING TO PATIENTS WHO ARE OR HAVE BEEN ENROLLED IN A CHEMICAL DEPENDENCY/SUBSTANCEABUSE PROGRAM, SOME INFORMATION MAY BE OMITTED. This clinical summary was aggregated from multiple sources. Caution should be exercised in using it in the provision of clinical care. This summary normalizes information from multiple sources, and as a consequence, information in this document may materially change the coding, format and clinical context of patient data. In addition, data may be omitted in some cases. CLINICAL DECISIONS SHOULD BE BASED ON THE PRIMARY CLINICAL RECORDS. [employer] provides no warranty or guarantee of the accuracy or completeness of information in this document.
--- NOTE | 2024-03-18 09:15 | XR_ITS ---
The [address] [address] Patient Name: EMILIE CONNER MRN: [id number] date: 1950 Sex: F Assigned Patient Location: [facility] Current Patient Location: Accession/Order Number: [id number] Exam Date: 03/18/2024 09:30 Report Date: 03/19/2024 05:22 At the request of: THANH FISHER Procedure: XR DEXA axial skeleton EXAMINATION: XR DEXA axial skeleton HISTORY: Screening For Osteoporosis COMPARISON: No relevant comparison available. TECHNIQUE: Dual-energy X-ray absorptiometry (DXA) was performed. FINDINGS: SPINE ANALYSIS: Average bone mineral density is 0.899 g/cm2. T-score (standard deviation relative to young adult mean): -2.3 . HIP ANALYSIS: Lowest bone mineral density is within the left femoral neck, 0.640 g/cm2. T-score (standard deviation relative to young adult mean): -2.9 . XR/XR DEXA axial skeleton IMPRESSION: World Health Organization Classification: Osteoporosis - High Fracture Risk FRAX: Cannot be calculated. Pharmacologic treatment recommendations * No uniform recommendation applies to all patients. Management plans must be individualized. * Consider initiating pharmacologic treatment in postmenopausal women and men >= 50 years of age who have the following: Primary fracture prevention: * T-score <= - 2.5 at the femoral neck, total hip, lumbar spine, 33% radius (some uncertainty with existing data) by DXA. * Low bone mass (osteopenia: T-score between - 1.0 and - 2.5) at the femoral neck or total hip by DXA with a 10-year hip fracture risk >= 3% or a 10-year major osteoporosis-related fracture risk >= 20% (i.e., clinical vertebral, hip, forearm, or proximal humerus) based on the [place]-adapted FRAXregistered model. Secondary fracture prevention: * Fracture of the hip or vertebra regardless of BMD [4, 5]. * Fracture of proximal humerus, pelvis, or distal forearm in persons with low bone mass (osteopenia: T-score between - 1.0 and - 2.5). The decision to treat should be individualized in persons with a fracture of the proximal humerus, pelvis, or distal forearm who do not have osteopenia or low BMD [12, 13]. Daniela MS, Garrett SL, Terell KL, Joseluis EM, Jana KG, AJ, Galen ES. The clinician's guide to prevention and treatment of osteoporosis. Osteoporos Int. 2021;33(10):1590-4319. doi: 10.1007/u89452-293-61006-x. Epub 2021Sep 15. Erratum in: Osteoporos Int. 2021Dec 15;: PMID: [id number]; PMCID: [id number]. Electronically authenticated by: MIGUEL MANDEL Date: 03/19/2024 05:22
--- NOTE | 2024-03-18 09:15 | MM_ITS ---
Patient Name: EMILIE CONNER MR#: [id number] : 1950 Exam Date: 03/18/2024 Ordering Doctor: Yvette Bajwa RADIOLOGY REPORT PROCEDURE: MM TOMOSYNTHESIS SCREENING BI COMPARISON: MM TOMOSYNTHESIS SCREENING BI, 03/08/2023. MAMMO RT DX, 02/14/2022. MG MAMM SCREEN RAY W CAD, 02/02/2022. MG MAMM SCREEN RAY W CAD, 09/21/2020. INDICATIONS: Screening Calculator Name NCI Breast Cancer Risk Assessment Tool 5 Year Breast Cancer Risk 1.40% Lifetime Breast Cancer Risk 3.80% Personal Breast Cancer No Personal Ovarian Cancer No Treatments None Family Cancers Aunt-maternal with breast cancer at age 38; Father with blood cancer at age 61; Daughter with kidney cancer at age 28. LOCATION: The [facility] BREAST COMPOSITION: There are scattered areas of fibroglandular density. FINDINGS: DIAGNOSTIC CATEGORY 2--BENIGN FINDING: RIGHT BREAST: No significant suspicious finding. No significant change has occurred. LEFT BREAST: No significant suspicious finding. Scattered benign-appearing calcifications are present. No significant change has occurred. RECOMMENDATIONS: ROUTINE MAMMOGRAM AND CLINICAL EVALUATION IN 12 MONTHS. PLEASE NOTE: A NORMAL MAMMOGRAM DOES NOT EXCLUDE THE POSSIBILITY OF BREAST CANCER. A CLINICALLY SUSPICIOUS PALPABLE LUMP SHOULD BE BIOPSIED. Dictated by: Oswaldo Moeller M.D. on 03/18/2024 at 14:42 Approved by: Oswaldo Moeller M.D. on 03/18/2024 at 14:43
== END 2024-03-18 09:11 | disposition home or self-care (01) ==
LOC: MAMMO 09:10
PROVIDERS: Visit Provider Nurse Practitioner Family
DX: Z00.00 Encounter for general adult medical examination without abnormal findings (principal); Z13.820 Encounter for screening for osteoporosis; M15.9 Polyosteoarthritis, unspecified; M85.88 Other specified disorders of bone density and structure, other site; Z12.31 Encounter for screening mammogram for malignant neoplasm of breast; Z80.3 Family history of malignant neoplasm of breast; Z80.8 Family history of malignant neoplasm of other organs or systems; Z80.51 Family history of malignant neoplasm of kidney; M81.0 Age-related osteoporosis without current pathological fracture
CPT/HCPCS: 77063; 77067; 77080

== ENCOUNTER 2025-03-19 09:18 | Outpatient (OUT) | payer MEDICARE, SELFPAY ==
--- NOTE | 2025-03-19 | MM_ITS ---
Patient Name: EMILIE CONNER MR#: [id number] : 1950 Exam Date: 03/19/2025 Ordering Doctor: THANH FISHER RADIOLOGY REPORT PROCEDURE: MM TOMOSYNTHESIS SCREENING BI COMPARISON: MM TOMOSYNTHESIS SCREENING BI, 03/18/2024. MM TOMOSYNTHESIS SCREENING BI, 03/08/2023. MAMMO RT DX, 02/14/2022. MG MAMM SCREEN RAY W CAD, 02/02/2022. INDICATIONS: SCREENING FOR MALIGNANT NEOPLASM Calculator Name NCI Breast Cancer Risk Assessment Tool 5 Year Breast Cancer Risk 1.40% Lifetime Breast Cancer Risk 3.60% Personal Breast Cancer No Personal Ovarian Cancer No Treatments None Family Cancers Aunt-maternal with breast cancer at age 38; Father with blood cancer at age 61; Daughter with kidney cancer at age 28. LOCATION: The [facility] BREAST COMPOSITION: There are scattered areas of fibroglandular density. FINDINGS: DIAGNOSTIC CATEGORY 1--NEGATIVE. RIGHT BREAST: No significant suspicious finding. LEFT BREAST: No significant suspicious finding. RECOMMENDATIONS: ROUTINE MAMMOGRAM AND CLINICAL EVALUATION IN 12 MONTHS. Dictated by: Prasanna Clemons DO on 03/19/2025 at 15:48 Approved by: Prasanna Clemons DO on 03/19/2025 at 15:50
--- OUTSIDE RECORDS SUMMARY | 2025-03-19 09:21 | XMS_ITS | Clinical Summary ---
Author Organization [facility] Address [address] [place] [address] Care Team Providers Care Package Dyer Name Role Phone Pro Shay MD Primary Care Provider [phone] Allergies No known active allergies Medications MedicationSigDispense QuantityRefillsLast FilledStart DateEnd DateStatus amLODIPine (Norvasc) 5 MG tablet Take 5 mg by mouth in the morning.11/08/2022ctive methylPREDNISolone (Medrol Dospak) 4 MG tablets Indications:Left hand painFollow schedule on package instructions 21 tablet 11/28/2022ctive Active Problems No known active problems Family History Medical HistoryRelationNameCommentsCancerFatherStrokeFatherHTNMotherHeart diseaseMotherRelationNameStatusCommentsFatherDeceasedMotherDeceased Social History Tobacco UseTypesPacks/DayYears UsedDateSmoking Tobacco: NeverSmokeless Tobacco: NeverAlcohol UseStandard Drinks/WeekCommentsNever0 (1 standard drink = 0.6 oz pure alcohol)CommentsUnknownSex and Gender InformationValueDate Recorded Sex Assigned at BirthNot on fileLegal JgeKpmmjo99/15/2023 7:17 PM EDTGender IdentityNot on fileSexual OrientationNot on file Last Filed Vital Signs Vital SignReadingTime TakenCommentsBlood Pressure--Pulse--Temperature-- Respiratory Rate--Oxygen Saturation--Inhaled Oxygen Concentration--Qaldtd90.7 kg (125 lb)11/28/2022 9:27 AM YVJDewjrh617.4 cm (5')11/28/2022 9:27 AM EDTBody Mass Index24.4107/03/2023 9:27 AM EDT Plan of Treatment Not on file Insurance Care Teams Team MemberRelationshipSpecialtyStart DateEnd Pro Shay MD [address] [place] [address] [phone] PCP - GeneralFamily Medicine11/13/22
--- OUTSIDE RECORDS SUMMARY | 2025-03-19 09:22 | XMS_ITS | CCD ---
Author Organization [facility] Care Team Providers Care Neurological Surgery Teacher Name Role Phone Jaz Ospina Shell Attending Unavailable Ildwayne, Tamie Primary Care Unavailable Jocelynn Hinojosa Unavailable Arianne Grubbs Unavailable Fisher DRAMA TEACHER-NURSE LEADER, Thanh Primary Care Provider Fisher DRAMA TEACHER-NURSE LEADER, Thanh Primary Care Provider TYLOR DE LA ROSA Attending Unavailable FISHER, THANH Referring Unavailable FISHER, THANH Primary Care Unavailable FISHER, THANH Attending Unavailable FISHER, THANH Referring Unavailable FISHER, THANH Primary Care Unavailable FISHER, THANH Attending Unavailable FISHER, THANH Referring Unavailable FISHER, THANH Primary Care Unavailable TYLOR DE LA ROSA Referring Unavailable FISHER, THANH Primary Care Unavailable Allergies Allergy ClassificationReported Allergen(s)Allergy TypeDate of OnsetReaction(s) Facility (17 sources)Latex; Translations: [LATEX]Propensity to adverse reactions to drug 90-54-7525Vuhxi (See Comments)[facility] Medications Current Medications MedicationDrug Class(es)DatesSig (Normalized)Sig (Original)amLODIPine 10 mg oral tablet (16 sources)Dihydropyridine Calcium Channel BlockerStart: 01-23-2024 End: 96-38-3469cpey 1 tablet by mouth in the morningamLODIPine (NORVASC) 10 mg tablet Take 1 tablet (10 mg total) by mouth in the morning. 90 tablet 3 0 01/23/2024 Activeamoxicillin 875 mg / clavulanate 125 mg oral tablet (2 sources)Penicillin-class AntibacterialStart: 05-28-2023 End: 97-21-0807hgbs 1 tablet by mouth once in the morningamoxicillin-pot clavulanate (AUGMENTIN) 875-125 mg per tablet Take 1 tablet by mouth in the morningand 1 tablet before bedtime. Do all this for 7 days. 14 tablet 0 05/28/2023 06/04/2023 ActiveStart: 48-39-6794sbjq 1 tablet by mouth every twelve hoursAmoxicillin-Pot Clavulanate 875-125 MG 1 tablet Orally every 12 hrs for 10 day(s) Jul, Activeazithromycin 250 mg oral tablet (1 source)Macrolide AntimicrobialStart: 03-05-2024 End: 64-85-2330ooar 1 tablet by mouth in the morning, then take 2 tablets by mouth once daily, then take 1 tablet by mouth once dailyazithromycin (ZITHROMAX) 250 mg tablet Take 1 tablet (250 mg total) by mouth in the morning for 5 days. Take 2 tablets the first day, then 1 tablet daily for 4 days.. 6 tablet 03/05/2024 03/10/2024 Activecholecalciferol 1.25 mg oral capsule (17 sources)Vitamin DStart: 02-02-2025 End: 29-41-4232dutw 1 capsule by mouth two times weeklycholecalciferol (VITAMIN D3) 50,000 units capsule Indications: Vitamin D deficiency Take 1 capsule ( 50,000 Units total) by mouth 2 (two) times a week for 180 days. 24 capsule 1 02/02/2025 08/01/2025 ActiveStart: 01-24-2024 End: 24-73-3239yevk 1 capsule by mouth in the morningcholecalciferol, vitamin D3, (VITAMIN D3) 5,000 units capsule Take 1 capsule (5,000 Units total) bymouth in the morning. 90 capsule 01/24/2024 02/02/2025 Discontinued (Alternate therapy)codeine phosphate 2 mg/ml / guaiFENesin 20 mg/ml oral solution (1 source)Opioid AgonistStart: 35-89-8407auqzGKCjwfe-Codeine 100-10 MG/5ML 5 ml as needed EVERY [address] OR OPERATE HEAVY MACHINERY Oct, Junfte33 hr guaiFENesin 600 mg extended release oral tablet (1 source)Start: 05-28-2023 End: 82-03-6238gpjr 1 tablet by mouth onceguaiFENesin (MUCINEX) 600 mg tablet extended release 12hr Take 1 tablet (600 mg total) by mouth every 12 (twelve) hours for 7 days. 14 tablet 0 05/28/2023 06/04/2023 Activeloratadine 10 mg oral tablet (7 sources)Start: 52-90-3703uiwa 1 tablet by mouth in the morningloratadine (CLARITIN) 10 mg tablet Take 1 tablet (10 mg total) by mouth in the morning. 30 tablet 09/03/2024 Activemeloxicam 7.5 mg oral tablet (15 sources)Nonsteroidal Anti-inflammatory DrugStart: 01-23-2024 End: 03-55-2483fnxx 1 tablet by mouth in the morningmeloxicam (MOBIC) 7.5 mg tablet TAKE 1 TABLET BY MOUTH IN THE MORNING 90 tablet 02/12/2025 Active ondansetron 4 mg oral tablet (1 source)Serotonin-3 Receptor AntagonistStart: 20-04-4772wprd 1 tablet by mouth every eight hours as neededZofran ODT 4 MG 1 tablet on the tongue and allow to dissolve Orally every 8 hrs as needed for 4 days Oct, Active Completed/Discontinued Medications MedicationDrug Class(es)DatesSig (Normalized)Sig (Original)[id number] 200 actuat albuterol 0.09 mg/actuat metered dose inhaler (11 sources)beta2-Adrenergic AgonistStart: 05-28-2023 End: 34-79-7564hkad 2 puff(s) by inhalation every six hours as needed for wheezingalbuterol (PROVENTIL HFA;VENTOLIN HFA) 90 mcg/actuation inhaler Indications: Shortness of breath Inhale 2 puffs every 6 (six) hours as needed for wheezing. 18 g 1 05/28/2023 01/26/2025 DiscontinuedStart: 81-96-7523hlaj 2 puff(s) by inhalation every four hours as neededAlbuterol Sulfate HFA 108 (90 Base) MCG/ACT 2 puffs as needed Inhalation every 4 hrs Oct, Active calcium carbonate 1250 mg chewable tablet (10 sources) End: 78-09-7813vkryugp carbonate (OS-ZI) 500 mg calcium (1,250 mg) chewable tablet Chew 2 tablets (1,000 mg total) and swallow in the morning. 01/26/2025 Discontinuedcyclobenzaprine hydrochloride 5 mg oral tablet (2 sources)Muscle RelaxantStart: 09-03-2024 End: 73-94-9922iqfu 1 tablet by mouth twice daily as needed for muscle spasms cyclobenzaprine (FLEXERIL) 5 mg tablet Indications: Neck pain Take 1 tablet (5 mg total) by mouth 2(two) times a day as needed for muscle spasms. 30 tablet 09/03/2024 01/26/2025 Discontinuedfluticasone propionate 0.05 mg/actuat metered dose nasal spray (12 sources)CorticosteroidStart: 02-26-2023 End: 49-88-4919upie 1 spray(s) nasal route in the morningfluticasone propionate (FLONASE) 50 mcg/actuation nasal spray Administer 1 spray into each nostril in the morning. 15.8 mL 05/28/2023 01/26/2025 DiscontinuedStart: 08-86-8197rwus 2 spray(s) nasal route once dailyFluticasone Propionate 50 MCG/ACT 2 sprays Nasally Once a day for 14 day(s) Jul, ActivemethylPREDNISolone 4 mg oral tablet (13 sources)CorticosteroidStart: 03-05-2024 End: 79-08-2718wxmd 1 tablet by mouth in the morningmethylPREDNISolone (MEDROL, MARISOL,) 4 mg tablet Take 1 tablet (4 mg total) by mouth in the morning. follow package directions. 21 tablet 03/05/2024 01/26/2025 DiscontinuedStart: 05-28-2023 End: 69-08-4247rfxnzzRUZBKAVyxzzx (MEDROL, MARISOL,) 4 mg tablet follow package directions 21 tablet 05/28/2023 03/05/2024 Discontinued (Duplicate Listing) Start: 55-78-2541vlensyISYCBJWcyusc (MEDROL, MARISOL,) 4 mg tablet follow package directions 21 tablet 05/28/2023 ActiveStart: 47-82-2543agxpvkAUTUEQUempwe (MEDROL, MARISOL,) 4 mg tablet follow package directions 21 tablet 0 05/28/2023 ActiveStart: 98-25-8716lsenidUEBEPOQostvt 4 MG as directed Orally Once a day for 6 days Oct, ActiveStart: 68-40-5250Fpvkqp 4 MG as directed Orally as directed for 6 days Jul, Activepantoprazole 20 mg delayed release oral tablet (8 sources)Proton Pump InhibitorStart: 01-23-2024 End: 12-17-3439ilxe 1 tablet by mouth in the morningpantoprazole (PROTONIX) 20 mg EC tablet Take 1 tablet (20 mg total) by mouth in the morning. 30 tablet 1 01/23/2024 01/26/2025 DiscontinuedrOPINIRole 0.5 mg oral tablet (13 sources)Nonergot Dopamine AgonistStart: 01-23-2024 End: 61-15-9123ptfh 1 tablet by mouth once daily at bedtimerOPINIRole (REQUIP) 0.5 mg tablet Indications: Restless leg Take 1 tablet (0.5 mg total) by mouth on ce daily at bedtime. 90 tablet 1 01/23/2024 01/26/2025 DiscontinuedStart: 01-23-2024 End: 56-29-1079jrpo 1 tablet by mouth three times dailyrOPINIRole (REQUIP) 0.5 mg tablet Indications: Restless leg Take 1 tablet (0.5 mg total) by mouth 3 (three) times a day. 90 tablet 1 01/23/2024 01/23/2024 Discontinued (Reorder) Start: 04-30-2023 End: 41-31-6343oujt 1 tablet by mouth once daily at bedtimerOPINIRole (REQUIP) 0.25 mg tablet Take 1 tablet (0.25 mg total) by mouth once daily at bedtime. 30 tablet 2 12/19/2023 01/23/2024 Discontinued (Dose adjustment)vitamin b12 1 mg oral tablet (10 sources)Vitamin B12 End: 77-90-7009wpti 5 tablets by mouth in the morningcyanocobalamin 1000 MCG tablet Take 5 tablets (5,000 mcg total) by mouth in the morning. 01/26/2025 Discontinued Problems Active Problems Problem ClassificationProblemDateDocumented DateEpisodic/ChronicEsophageal disorders (15 sources)Gastroesophageal reflux disease without esophagitis; Translations: [Gastro-esophageal reflux disease without esophagitis]Onset: 03-13-2018 49-59-9483NzrwqnnQioyyfmyp hypertension (15 sources)Essential hypertension; Translations: [Essential (primary) hypertension]Onset: 588495-48-7402IvswxweWufppxfy; including migraine (15 sources)Tension-type headache; Translations: [Tension-type headache, unspecified, not intractable]Onset: 624446-91-3350BycnvdoGbrrqmlp; including migraine (1 source)Headache; including migraine; Translations: [Headache, unspecified] Onset: 85-61-3767Tgsswwctutq deficiencies (19 sources)Vitamin D deficiency; Translations: [Vitamin D deficiency, unspecified]Onset: 016426-18-5766AqusvzxLjqbhznisfe deficiencies (3 sources)Vitamin B deficiency; Translations: [Vitamin B deficiency, unspecified]Onset: 270037-96-9575HoqrainfJdejswtptkobkt (17 sources)Degenerative joint disease involving multiple joints; Translations: [Polyosteoarthritis, unspecified]Onset: 964715-47-1566IzmonpyZdnvp gastrointestinal disorders (15 sources)Irritable bowel syndrome with diarrhea; Translations: [Irritable bowel syndrome with diarrhea]Onset: 328983-63-7596XpdwsppCqxhj hereditary and degenerative nervous system conditions (17 sources)Restless legs; Translations: [Restless legs syndrome]Onset: 693247-49-9175BeqzqueIhvfx hereditary and degenerative nervous system conditions (1 source)Restless legs syndrome; Translations: [Restless legs syndrome]Onset: 31-46-1766BlmqjgiZdbiq non-traumatic joint disorders (15 sources)Finger joint locking; Translations: [Other specific joint derangements of unspecified hand, not elsewhere classified]Onset: 12-04-2019 45-93-1264UljxkopBrtxneivjikj (1 source)R21 - Rash and other nonspecific skin eruption; Translations: [R21 - Rash and other nonspecific skin eruption]Onset: 14-29-6667Otzaluoxrjpf (1 source)medicare annual wellnessOnset: 01-26-2025 Past or Other Problems Problem ClassificationProblemDateDocumented DateEpisodic/ChronicAcute bronchitis (2 sources)Acute bronchitis; Translations: [Acute bronchitis, unspecified] 47-19-7191PsrscsfyZltsvcg obstructive pulmonary disease and bronchiectasis (1 source)Bronchitis, not specified as acute or chronicOnset: 10-24-2021 Resolved: 58-18-8894YhafdgxkLnfhjisnkh associated with dizziness or vertigo (3 sources)Dizziness; Translations: [Dizziness and giddiness]Onset: 09-03-2024 47-86-5606QefrbaeaKlqlaxds; including migraine (5 sources)Headache; Translations: [New onset headache]Onset: 09-03-2024 58-47-0496FkbqtiokBcaxqdznjzqnj and screening for infectious disease (17 sources)Contact with and (suspected) exposure to other viral communicable diseases; Translations: [At risk of sexually transmitted infection ]Onset: 03-13-2018 Resolved: 55-68-2347EiwzbncsHdgmaqxxobuh; infection of eye (except that caused by tuberculosis or sexually transmitteddisease) (20 sources)Acute conjunctivitis of left eye; Translations: [Unspecified acute conjunctivitis, left eye]Onset: 04-25-2018 Resolved: 772903-13-7075GiqzlrnjEojcrxkhq (1 source)Influenza due to other identified influenza virus with other respiratory manifestationsOnset: 10-24-2021 Resolved: 95-80-7549QpmzvltiWvyk disorders (15 sources)Mood disordersOnset: 01-15-2023 Resolved: 579281-17-7279Seqeijrbhrhg (15 sources)Senile osteoporosis; Translations: [Age-related osteoporosis without current pathological fracture]Onset: 04-25-2018 Resolved: 948544-60-2231ZqrjqncGrquo bone disease and musculoskeletal deformities (2 sources)Disorder of bone; Translations: [Other specified disorders of bone density and structure, other site]55-29-0759XbgtcvjpUufpq connective tissue disease (15 sources)Lateral epicondylitis of right humerus; Translations: [Lateral epicondylitis, right elbow]Onset: 03-13-2018 Resolved: 074334-11-5149NrypwswrEjqvx liver diseases (15 sources)Scleral icterus; Translations: [Unspecified jaundice]Onset: 07-16-2019 Resolved: 936820-52-7038OzowxzhlIhgcf lower respiratory disease (1 source)Dyspnea; Translations: [Shortness of breath]82-51-7023HmodajgbTxgrh non-traumatic joint disorders (15 sources)Metacarpophalangeal joint pain; Translations: [Pain in joints of left hand]Onset: 814985-15-9083WpilxjikYjopr screening for suspected conditions (not mental disorders or infectious disease) (20 sources)Patient encounter status; Translations: [Encounter for screening for lipoid disorders]Onset: 03-13-2018 Resolved: 518451-37-4133DmvaskzfNpwaf upper respiratory disease (1 source)Pain in throatOnset: 52-78-6370NhpuizekKylwl upper respiratory infections (18 sources)Acute sinusitis, unspecified; Translations: [Acute maxillary sinusitis]Onset: 04-14-2019 Resolved: 64-34-0268GfszhtyhGzzx and subcutaneous tissue infections (15 sources)Cellulitis of periorbital region of left eye; Translations: [Periorbital cellulitis]Onset: 07-16-2019 Resolved: 796303-60-2435FbnodymuBccrmhgbrhj; intervertebral disc disorders; other back problems (4 sources)Neck pain; Translations: [Cervicalgia]Onset: Episodic Results Test NameValueInterpretationReference RangeFacilityCBCon 01-41-0130Fbphwqxexnd distribution width (RBC) [Ratio]14.7 %11.5 - 15 %[facility] Hematocrit (Bld) [Volume fraction]37.9 %35 - 47 %[facility] Hemoglobin (Bld) [Mass/Vol]12.4 g/dL11.7 - 15.5 g/dLCommunity Regional Medical Center Interpretation and review of laboratory resultsNormalUC HealthH (RBC) [Entitic mass]27.1 pg27 - 34 [facility] HealthHC (RBC) [Mass/Vol]32.8 g/dL32 - 36 g/dLUC HealthV (RBC) [Entitic vol]83 fL80 - 100 [facility] CenterPlatelet mean volume (Bld) [Entitic vol]7.6 fL7 - 12 [facility] CenterPlatelets (Bld) [#/Vol]304 10*3/uLCommunity Regional Medical CenterRBC (Bld) [#/Vol]4.59 10*6/uLCommunity Regional Medical CenterWBC LM Ql (Sput)4.7[facility] HospitalCBC (NO DIFF)on 80-26-8174Utsemwrslzf distribution width (RBC) [Ratio]14.7 %Wwiszv04.5-15 [facility] HospitalComment on above:Performed By: #### CBC #### [facility] ([facility]) [address] [place] [address] VIRHematocrit (Bld) [Volume fraction]37.9 %Yuqrps25-50TdzTygrbgCleveland Clinic South Pointe HospitalComment on above:Performed By: #### CBC #### [facility] ([facility]) [address] [place] [address] VIRHemoglobin (Bld) [Mass/Vol]12.4 g/dEVrxeqs66.7-15.5PKettering Health HamiltonComment on above:Performed By: #### CBC #### [facility] ([facility]) [address] [place] [address] VIRMCH (RBC) [Entitic mass]27.1 ngPbdmcx33-88YdcTnfjbiCleveland Clinic South Pointe HospitalComment on above:Performed By: #### CBC #### [facility] ([facility]) [address] [place] [address] VIRMCHC (RBC) [Mass/Vol]32.8 g/pXFqpqeu24-18NkmPcpggfCleveland Clinic South Pointe HospitalComment on above:Performed By: #### CBC #### [facility] ([facility]) [address] [place] [address] VIRMCV (RBC) [Entitic vol]83 lGZduuvv79-241QagPjgkyzCleveland Clinic South Pointe HospitalComment on above:Performed By: #### CBC #### [facility] ([facility]) [address] [place] [address] VIRPlatelet mean volume (Bld) [Entitic vol]7.6 fLNormal7-12 [facility] HospitalComment on above:Performed By: #### CBC #### [facility] ([facility]) [address] [place] [address] VIRPlatelets (Bld) [#/Vol]304 10*3/kVMheopm997-994TitRofhot [facility]remont HospitalComment on above:Performed By: #### CBC #### [facility] ([facility]) [address] [place] [address] VIRRBC COUNT4.59 X10E12/LNormal3.8-5.2PKettering Health HamiltonComment on above:Performed By: #### CBC #### [facility] ([facility]) [address] [place] [address] VIRWBC (Bld) [#/Vol]4.7 10*3/uLNormal4-11ProMethodist Mansfield Medical CenterComment on above:Performed By: #### CBC #### [facility] ([facility]) [address] [place] [address] VIRCOMPREHENSIVE METABOLIC PANELon 67-34-6903Swjvjci [Mass/Vol] 4.2 g/dLNormal3.2-5.3PKettering Health HamiltonComment on above:Performed By: #### CMP #### [facility] ([facility]) [address] [place] [address] VIRALP [Catalytic activity/Vol]73 U/ZEfsmde11-318CgaQyzlomCleveland Clinic South Pointe HospitalComment on above:Performed By: #### CMP #### [facility] ([facility]) [address] [place] [address] VIRALT [Catalytic activity/Vol]15 U/LNormal<=31PKettering Health HamiltonComment on above:Performed By: #### CMP #### [facility] ([facility]) [address] [place] [address] VIRAnion gap [Moles/Vol]7 mmol/LNormal5-15ProMethodist Mansfield Medical CenterComment on above:Performed By: #### CMP #### [facility] ([facility]) [address] [place] [address] VIRAST [Catalytic activity/Vol]19 U/LNormal<=41ProMethodist Mansfield Medical CenterComment on above:Performed By: #### CMP #### [facility] ([facility]) [address] [place] [address] VIRBilirubin [Mass/Vol]0.8 mg/dLNormal0.3-1.2PKettering Health HamiltonComment on above:Performed By: #### CMP #### [facility] ([facility]) [address] [place] [address] VIRCalcium [Mass/Vol]9.2 mg/dLNormal8.5-10.5PKettering Health HamiltonComment on above:Performed By: #### CMP #### [facility] ([facility]) [address] [place] [address] VIRChloride [Moles/Vol]105 mmol/OCfvtvo12-572CfiDwagmlMethodist Mansfield Medical CenterComment on above:Performed By: #### CMP #### [facility] ([facility]) [address] [place] [address] VIRCO2 [Moles/Vol]30 mmol/VYkizwq43-73EefHcwflmKettering Health HamiltonComment on above:Performed By: #### CMP #### [facility] ([facility]) [address] [place] [address] VIRCreatinine [Mass/Vol]0.71 mg/dLNormal0.40-1.00ProMethodist Mansfield Medical CenterComment on above:Result Comment: METHOD TRACEABLE TO IDMS STANDARDPerformed By: #### CMP #### [facility] ([facility]) [address] [place] [address] VIRGFR/1.73 sq M.predicted among non-blacks MDRD (S/P/Bld) [Vol rate/Area]90 mL/min/{1.73_m2}Normal>=60ProMethodist Mansfield Medical CenterComment on above:Result Comment: Reported eGFR is based on the CKD-EPI 2020 equation that does not use a race coefficient.Performed By: #### CMP #### [facility] ([facility]) [address] [place] [address] VIRGlucose [Mass/Vol]89 mg/jBBbcxkf93-58PwgIxbwvnMethodist Mansfield Medical CenterComment on above:Performed By: #### CMP #### [facility] ([facility]) [address] [place] [address] VIRPotassium [Moles/Vol]4.3 mmol/LNormal3.5-5.0[facility] HospitalComment on above:Performed By: #### CMP #### [facility] ([facility]) [address] [place] [address] VIRProtein [Mass/Vol]6.9 g/dLNormal6.0-8.0[facility] HospitalComment on above:Performed By: #### CMP #### [facility] ([facility]) [address] [place] [address] VIRSodium [Moles/Vol]142 mmol/FSgttxk246-480FzbCjywzz [facility] HospitalComment on above:Performed By: #### CMP #### [facility] ([facility]) [address] [place] [address] VIRUrea nitrogen [Mass/Vol]17 mg/dLNormal5-27ProMethodist Mansfield Medical CenterComment on above:Performed By: #### CMP #### [facility] ([facility]) [address] [place] [address] VIRComprehensive metabolic panelon 97-93-2587Jhcubzx [Mass/Vol] 4.2 g/dL3.2 - 5.3 g/dLBrecksville VA / Crille Hospital SystemALP [Catalytic activity/Vol]73 U/L 39 - 130 U/LProMedica Health SystemALT No additional P-5'-P [Catalytic activity/Vol]15 U/LNINF - 31 U/LProMedica Health SystemAnion gap [Moles/Vol]7 mmol/L5 - 15 mmol/LProMedica Health SystemAST [Catalytic activity/Vol]19 U/LNINF - 41 U/LProMedica Health SystemBilirubin [Mass/Vol]0.8 mg/dL0.3 - 1.2 mg/dL ProMd.w. mcmillan memorial hospitala Health SystemCalcium [Mass/Vol]9.2 mg/dL8.5 - 10.5 mg/dLProC[facility] Clinic [facility] SystemChloride [Moles/Vol]105 mmol/L98 - 109 mmol/LPrMedical Center of the Rockies Health SystemCO2 [Moles/Vol]30 mmol/L22 - 32 mmol/[facility] SystemCreatinine [Mass/Vol]0.71 mg/dL0.40 - 1.00 mg/dLCommunity Regional Medical CenterComment on above: METHOD TRACEABLE TO IDMS STANDARDEGFR Non-Race [address] [place], [place] [address]Comment on above:Reported eGFR is based on the CKD-EPI 2020 equation that does not use a race coefficient. Glucose [Mass/Vol]89 mg/dL65 - 99 mg/dLProCleveland Clinic [facility] General SystemPotassium [Moles/Vol]4.3 mmol/L3.5 - 5.0 mmol/LPrMedical Center of the Rockies Health SystemProtein [Mass/Vol] 6.9 g/dL6.0 - 8.0 g/dLBrecksville VA / [facility] Hospital SystemSodium [Moles/Vol]142 mmol/L134 - 146 mmol/[facility] Health SystemUrea nitrogen [Mass/Vol]17 mg/dL5 - 27 mg/dL [facility] SystemIRON AND TIBCon 53-61-5284Oars [Mass/Vol]64 ug/dLNormal 50-170[facility] HospitalComment on above:Performed By: #### FEPR #### [facility] ([facility]) [address] [place] [address] VIRIRON BUDTYHF137 ug/uENawuei839-580CwkNlwttnC[facility] Clinic [facility] Comment on above:Performed By: #### FEPR #### [facility] ([facility]) [address] [place] [address] VIRIRON BJBXYZSHSC95 % KLVVPFEVSJPazqsz67-13DkcJdglni [facility] HospitalComment on above:Performed By: #### FEPR #### [facility] ([facility]) [address] [place] [address] VIRTransferrin [Mass/Vol]252 mg/gTAsnytr836-520KfxOdjbkbCleveland Clinic South Pointe HospitalComment on above:Performed By: #### FEPR #### [facility] ([facility]) [address] [place] [address] VIRIron and TIBCon 77-58-9117Vqyg [Mass/Vol]64 ug/dL50 - 170 ug/dLProCleveland Clinic [facility] General SystemIron binding capacity [Mass/Vol]353 ug/dL250 - 425 ug/dLProCleveland Clinic [facility] General SystemIron saturation [Mass fraction]18ProC[facility] Clinic [facility] General SystemTransferrin [Mass or moles/Vol]252 mg/dL168 - 336 mg/dLBrecksville VA / [facility]ille Hospital SystemLIPID PROFILEon 18-97-1198Rnxlfsrrxbd [Mass/Vol]180 mg/dCShaggr468-569 [facility] HospitalComment on above:Performed By: #### LIPR #### [facility] ([facility]) [address] [place] [address] VIRCholesterol in HDL [Mass/Vol]50 mg/dLNormal>39ProMethodist Mansfield Medical CenterComment on above:Result Comment: HDL <40 mg/dL - High Risk HDL > or = 40mg/dL- Desirable HDL >60 mg/dL - Negative RiskPerformed By: #### LIPR #### [facility] ([facility]) [address] [place] [address] VIRCholesterol in LDL [Mass/Vol]116 mg/dLNormal<130[facility] HospitalComment on above:Result Comment: LDL <100 mg/dL - Desirable LDL >160 mg/dL - High RiskPerformed By: #### LIPR #### [facility] ([facility]) [address] [place] [address] VIRCHOLESTEROL:HDL3.1Ygvtbc9.0-5.0[facility] Comment on above:Performed By: #### LIPR #### [facility] ([facility]) [address] [place] [address] VIRTriglyceride [Mass/Vol]71 mg/uRSyqknl54-645PrhAaxemtCleveland Clinic South Pointe HospitalComment on above:Performed By: #### LIPR #### [facility] ([facility]) [address] [place] [address] VIRVERY LOW FKANJTBZIXX25 mg/dLNormal0-30[facility] HospitalComment on above:Performed By: #### LIPR #### [facility] ([facility]) [address] [place] [address] VIRLipid panelon 10-17-3496Qnsirevdrvr [Mass/Vol]180 mg/dL150 - 200 mg/dLCommunity Regional Medical CenterCholesterol in HDL [Mass/Vol]50 mg/dL39 - PINF mg/dLCommunity Regional Medical CenterComment on above:HDL <40 mg/dL - High Risk HDL > or = 40mg/dL- Desirable HDL >60 mg/dL - Negative Risk Cholesterol in HDL [Mass/Vol]3.6 mg/dL1.0 - 5.0[facility] Cholesterol in LDL [Mass/Vol]116 mg/dLNINF - 130 mg/dLCommunity [facility] Comment on above:LDL <100 mg/dL - Desirable LDL >160 mg/dL - High Risk Cholesterol in VLDL [Mass/Vol]14 mg/dL0 - 30 mg/dLCommunity [facility] Center Triglyceride [Mass/Vol]71 mg/dL27 - 150 mg/dLCommunity Regional Medical CenterNo Panel Informationon 83-59-7042Eherzefinjouit and review of laboratory resultsNormal [facility] Health HospitalVITAMIN B12on 17-12-2475Frxvitizy (Vitamin B12) [Mass/Vol]371 pg/fCZcymmr626-007YseCtmsvf[address] [place], [place] [address]Comment on above:Performed By: #### B12 #### [facility] ([facility]) [address] [place] [address] VIRVITAMIN D 25 HYDROXYon 77-66-6781MFJCJEW D 25 HYD TOT17.0 ng/mLLow30.0-100.0[facility] HospitalComment on above:Order Comment: Vitamin D status 25 [place] Vitamin D Deficiency <20 ng/mL Insufficiency 20-29 ng/mL Sufficiency 30-100 ng/mL Toxicity >100 ng/mL NOTE: A pediatric reference range has not been established by the well tender of this kit. The [place] [employer] recommends a Vitamin D level of = or >20ng/mL in infants and children.Performed By: #### VITD #### [facility] ([facility]) [address] [place] [address] VIRVitamin B12on 38-24-2267Gsnuquayr (Vitamin B12) [Mass/Vol] 371 pg/mL180 - 914 pg/mLBrecksville VA / Crille Hospital SystemInterpretation and review of laboratory resultsNormalLifecare Behavioral Health HospitalVitamin D 25 hydroxyon 445555-zpbtwckmfhrinm D3 [Mass/Vol]17 ng/mLLow30.0 - 100.0 ng/mLBrecksville VA / Crille Hospital SystemInterpretation and review of laboratory results AbnormalCommunity Regional Medical CenterVitamin D status 25 [place] Vitamin D Deficiency <20 ng/mL Insufficiency 20-29 ng/mL Sufficiency 30-100 ng/mL Toxicity >100 ng/mL NOTE: A pediatric reference range has not been established by the well tender of this kit. The [place] [employer] recommends a Vitamin D level of = or >20ng/mL in infants and children.[facility] SystemDXA Skeletal system Views for bone densityon 29-24-0300QnaBavvwlWilson HealthRadiology Study observation (narrative)[facility] Regional Medical CenterPOCT rapid strep Aon 20-20-3496Mesizury Special Warfare Boat Operator Check Completed and PassedYes [facility] [employer]Global [employer] Beaumont HospitalInterpretation and review of laboratory resultsNormal St. Rita's HospitalInfor. pyogenes Ag IA Ql (Unsp spec)NegativeNegativeLifecare Behavioral Health HospitalMRI Foot w/o + w/ Righton 23-92-2117ZKJ Foot w/o + w/ RightHISTORY: Plantar foot mass. TECHNIQUE: Routine MRI of [...] and signed by Jasson Hoffmann on 2022 1349NormalNorttsehootsooi medical center ([facility])n [place] Medical SpecialistCOVID Quick Testingon 25-28-2314UtzvbiVqjrovueUptngVerafin Other quick Fluon 00-92-6053DHRWY Ab CF (S) [Titer]Positive [place] [employer]fen~Flow™ Other FLUBV Ab CF (S) [Titer]NegativeCircadence Other quick Strepon 10-24-2021. pyogenes Org specific cx Ql (Throat)NegativeMissouri Baptist Hospital-SullivanVerafin Other quick StrepCircadence Other COVID Quick Testingon 21-39-7595XzrczeJqkgrlfhEacjb [place] [employer] Other Quick Fluon 43-73-1559ZQXKV Ab CF (S) [Titer]Negative [facility] [employer] Other FLUBV Ab CF (S) [Titer]NegativeNortTorrance State Hospital [employer] Other Vital Signs Date TimeVital SignValuePerforming LfooneqmcUdcppzuf74-22-2608 09:24-0400Body pxfety608 cmMictaj De La Rosa DO Work Phone: [employer]09-08-2025 09:24-0400Body mass index (BMI) [Ratio]23.47 kg/y4Pnwdjnbtaj De La Rosa DO Work Phone: [facility] HospitalRevolution[facility]09-08-2025 09:24-0400Body dygvawvtixt96.9 [degF]Tylor De La Rosa DO Work Phone: [facility] Hospital[facility]09-08-2025 09:24-0400Body ruhxhr91.52 kgMictaj De La Rosa DO Work Phone: [facility] HospitalRev[facility]09-08-2025 09:24-0400Diastolic blood mypmmvfg13 mm[Hg]Tylor De La Rosa DO Work Phone: [employer]09-08-2025 09:24-0400Heart rate 60 /minMictaj De La Rosa DO Work Phone: [facility] HospitalRevolution[facility] Devices09-08-2025 09:24-5445OxQ2% (BldA) [Mass fraction]95 %Tylor De La Rosa DO Work Phone: [employer]09-08-2025 09:24-0400Systolic blood mm[Hg]Tylor De La Rosa DO Work Phone: [facility] HospitalRev[facility]04-16-2025 10:48-0400Body lcufar247.4 Donte Fisher DRAMA TEACHER-NURSE LEADER Work Phone: [facility]04-16-2025 10:48-0400Body mass index (BMI) [Ratio]23.94 kg/w5Ouwlefnspmelisa Fisher DRAMA TEACHER-NURSE LEADER Work Phone: [facility]04-16-2025 10:48-0400Body gvvgffbfzmi64.9 [degF]Thanh Fisher DRAMA TEACHER-NURSE LEADER Work Phone: [facility]04-16-2025 10:48-0400Body wiirdy12.61 kgAlemelisa Fisher DRAMA TEACHER-NURSE LEADER Work Phone: [facility]04-16-2025 10:48-0400Diastolic blood zlkrkute38 mm[Hg]Thanh Fisher DRAMA TEACHER-NURSE LEADER Work Phone: [facility]04-16-2025 10:48-0400Heart rate 64 /minAlemelisa Fisher DRAMA TEACHER-NURSE LEADER Work Phone: [facility]04-16-2025 10:48-0386ClG5% (BldA) [Mass fraction]98 %Thanh Fisher DRAMA TEACHER-NURSE LEADER Work Phone: [facility]04-16-2025 10:48-0400Systolic blood zeivefws343 mm[Hg]Thanh Fisher DRAMA TEACHER-NURSE LEADER Work Phone: [facility]10-16-2024 09:35-0400Body aqvtbw940.4 cmAlextiffanie Fisher DRAMA TEACHER-NURSE LEADER Work Phone: [facility]10-16-2024 09:35-0400Body mass index (BMI) [Ratio]23.71 kg/y7Mfzavgdbemelisa Fisher DRAMA TEACHER-NURSE LEADER Work Phone: [facility]10-16-2024 09:35-0400Body pmgcajapvgn44.7 [degF]Thanh Fisher DRAMA TEACHER-NURSE LEADER Work Phone: [facility]10-16-2024 09:35-0400Body oksgph72.07 kgAlemelisa Fisher DRAMA TEACHER-NURSE LEADER Work Phone: [facility] [employer] Qoccza84-68-9147 09:35-0400Diastolic blood ynhpbdpc86 mm[Hg]Thanh Fisher DRAMA TEACHER-NURSE LEADER Work Phone: [facility]10-16-2024 09:35-0400Heart rate 67 /minAlemelisa Fisher DRAMA TEACHER-NURSE LEADER Work Phone: [facility]10-16-2024 09:35-9045QiC2% (BldA) [Mass fraction]98 %Thanh Fisher DRAMA TEACHER-NURSE LEADER Work Phone: [facility]10-16-2024 09:35-0400Systolic blood elqtfouy613 mm[Hg]Thanh Fisher DRAMA TEACHER-NURSE LEADER Work Phone: [facility] [employer] Rjuobj52-92-1733 08:57-0400Body mass index (BMI) [Ratio]24.06 kg/h4Zvysivddimelisa Fisher DRAMA TEACHER-NURSE LEADER Work Phone: [facility] [employer] Vmgdzh67-79-1219 08:57-0400Body gczbqcmgnik26.9 [degF]Thanh Fisher DRAMA TEACHER-NURSE LEADER Work Phone: [facility] [employer] Gunhjj79-01-3282 08:57-0400Body zkewkf05.88 kgAlemelisa Fisher DRAMA TEACHER-NURSE LEADER Work Phone: [facility]09-04-2024 08:57-0400Diastolic blood kdmpugbc16 mm[Hg]Thanh Fisher DRAMA TEACHER-NURSE LEADER Work Phone: [facility] [employer] Jmiwon82-19-2370 08:57-0400Heart rate 63 /minAlemelisa Fishre DRAMA TEACHER-NURSE LEADER Work Phone: [facility]09-04-2024 08:57-2184MbD5% (BldA) [Mass fraction]99 %Thanh Fisher DRAMA TEACHER-NURSE LEADER Work Phone: [facility] HospitalHungrio Bbppyt77-63-4065 08:57-0400Systolic blood bxivhcwy669 mm[Hg]Thanh Fisher DRAMA TEACHER-NURSE LEADER Work Phone: [facility] [employer] Kiqrwj62-16-3690 11:44-0500Body degyzc270.4 cmAamairani Fisher DRAMA TEACHER-NURSE LEADER Work Phone: [facility] [employer] Uqudln91-81-2007 11:44-0500Body mass index (BMI) [Ratio]23.36 kg/t1Neloqjtzdmelisa Fisher DRAMA TEACHER-NURSE LEADER Work Phone: [facility] HospitalHungrio Dslqjf72-29-9677 11:44-0500Body wmizfbvgomy28.2 [degF]Thanh Fisher DRAMA TEACHER-NURSE LEADER Work Phone: [facility] [employer] Akuffi71-39-7121 11:44-0500Body vkfdur12.25 kgAlemelisa Fisher DRAMA TEACHER-NURSE LEADER Work Phone: [facility] [employer] Bxlikl27-45-6933 11:44-0500Diastolic blood mm[Hg]Thanh Fisher DRAMA TEACHER-NURSE LEADER Work Phone: [facility] [employer] Rllqtr01-53-3055 11:44-0500Heart rate 81 /minAlemelisa Fisher DRAMA TEACHER-NURSE LEADER Work Phone: [facility] [employer] Jxlwwq44-38-9094 11:44-3953FrX7% (BldA) [Mass fraction]98 %Thanh Fisher DRAMA TEACHER-NURSE LEADER Work Phone: [facility] [employer] Nkvcit98-97-4249 11:44-0500Systolic blood zxedmmby444 mm[Hg]Thanh Fisher DRAMA TEACHER-NURSE LEADER Work Phone: [facility] [employer] Fokedg67-84-3140 10:50-0400Body .4 Mulu Grubbs Other [place] [employer]fen~Flow™ Other 350279-73-0001 10:50-0400Body mass index (BMI) [Ratio] 24.41 kg/r2Aoliaxysl Romie Other [employer] Other 06-06-2022 10:50-0400Body yoegbymiwrc76.7 [degF] Arianne Nunnault Other [employer] Other 06-06-2022 10:50-0400Body .7 kgStantonia Grubbs Other [employer] Other 06-06-2022 10:50-0400Respiratory rate18 /minStepmakeda Romie Other [employer] Other 06-06-2022 10:50-2433HlF3% (BldA) [Mass fraction]97 % Arianne Grubbs Other [employer] Other 03-30-2022 15:50-0400Body eivozv137.4 cmPamela Micaela Other [employer] Other 03-30-2022 15:50-0400Body mass index (BMI) [Ratio] 24.41 kg/z4Fbcpvd Micaela Other [employer] Other 03-30-2022 15:50-0400Body nvoakwtjxfh84.8 [degF]Jocelynn Micaela Other [employer] Other 03-30-2022 15:50-0400Body ebismz80.7 kgPaadam Hinojosa Other [employer] Other 03-30-2022 15:50-0400Respiratory rate18 /minPamela Micaela Other [place] Yuanfen~Flow™ Other 03-30-2022 15:50-8417HmQ2% (BldA) [Mass fraction]97 % Jocelynn Hinojosa Other nortVerafin Other Encounters Encounter DateEncounter TypeCare ProviderFacilityStart: 03-13-2025 End: 57-84-1982Pajgzx OnlyMictaj Marlow Badik DO Work Phone: [facility] MedicineStart: 02-12-2025 End: 72-20-6997NyjblcKflcrbakv Rojas Amanda Huff DBA [employer] Work Phone: [facility] MedicineStart: 02-08-2025 End: 48-81-8991ZqwbabVfxthikhh Rojas Amanda Huff DBA [employer] Work Phone: [facility] MedicineStart: 02-02-2025 End: 28-47-9016Rgiemyhul encounterLeslye [facility] MedicineStart: 01-28-2025 End: 47-03-4648Nymcco-up encounterMichael D Baldemarik DO Work Phone: [facility] Physicians Family MedicineComment on above: CBC, Iron and TIBC, Comprehensive metabolic panel, Additional followed-up results: 3Start: 88-39-7553xsdjaodsjzLVIUOFQ D [facility] Start: 01-26-2025 End: 07-42-8523Ayoiuxi encounter procedureMichael D Badik DO Work Phone: [facility] Physicians Family MedicineComment on above: Medicare annual wellness visit, subsequent (Primary Dx); Restless leg; Encounter for screening mammogram for malignant neoplasm of breast; Vitamin D deficiency; Vitamin B deficiency; Encounter for lipid screening for cardiovascular diseaseStart: 01-26-2025 End: 78-86-5150ywfirokpanDACCWGQ [facility] Ambulatory PPGStart: 34-00-5953Eijksrqyj for general adult medical examination without abnormal findingsEASTERN NIAGARA HOSPITAL, NEWF[facility] DIVISIONRoberto Carlos Marlow [facility] Ambulatory PPGStart: 09-03-2024 End: 48-46-2225Mfehng outpatient visit 15 minutesThanh Fisher DRAMA TEACHER-NURSE LEADER Work Phone: [facility] Phys[facility] Family MedicineComment on above: New onset headache (Primary Dx); Persistent headaches; Dizziness; Neck painStart: 09-03-2024 End: 69-98-5357crhmkevlrnYHXMQPUEHTexas Health [facility]enton Ambulatory PPGStart: 04-10-2024 End: 91-51-1495Xijnsw OnlyNereyda Cat Physicians Family MedicineComment on above:Medicare annual wellness visit, subsequent; Encounter for screening for osteoporosis; Primary osteoarthritis involving multiple joints; Other specified disorders of bone density and structure, other siteStart: 04-10-2024 End: 49-35-7336Htjxgiq encounter procedureNereyda Cat [facility] SystemStart: 03-05-2024 End: 83-27-7478Fsvgpq outpatient visit 10 minutesThanh Fisher DRAMA TEACHER-[place] Work Phone: [facility] Family MedicineComment on above: Acute bronchitis, unspecified organism (Primary Dx); Pharyngitis, unspecified etiologyStart: 03-05-2024 End: 36-26-4255gwyfreszsvXTQOVCJJBTexas Health Denton Ambulatory PPGStart: 02-11-2024 End: 03-14-1221Mshtxkomx encounterNereyda Mckinney Family MedicineComment on above:Medication ProblemStart: 01-24-2024 End: 91-19-6700Aifxnb OnlyThanh Fisher DRAMA TEACHER-NURSE LEADER Work Phone: [facility] Family MedicineStart: 01-23-2024 End: 16-37-0371Srbccen encounter procedureAlemelisa Fisher DRAMA TEACHER-NURSE LEADER Work Phone: [facility] Family MedicineComment on above: Medicare annual wellness visit, subsequent (Primary Dx); Encounter for lipid screening for cardiovascular disease; Encounter for screening mammogram for malignant neoplasm of breast; Encounter for screening for osteoporosis; Primary osteoarthritis involving multiple joints; Restless leg; Vitamin D deficiency; Vitamin B deficiency; Other specified disorders of bone density and structure, other siteStart: 12-18-2023 End: 30-24-2964EyfzfsLmquim Swanson [facility] Start: 05-28-2023 End: 32-83-7794Meitsk outpatient visit 10 minutesAlemelisa Fisher DRAMA TEACHER-NURSE LEADER Work Phone: [facility] Family MedicineComment on above: Shortness of breath (Primary Dx); Acute non-recurrent maxillary sinusitis; Acute bronchitis, unspecified organismStart: 10-24-2021 End: 23-93-1918gnapsyxbwuVjxfcwnvv [place] Other [employer] Yuanfen~Flow™ Other Start: 68-29-5117Wrveix outpatient visit 15 minutes Arianne GrubbsFPG Urgent Care ClydeStart: 08-17-2021(URG) Urgent Care Visit Jocelynn HinojosaFPJayson Urgent Care ClydeStart: 08-17-2021 End: 82-65-3794jzzekquldmYwsnxn Dymond Other noCircadence Other Start: 04-26-2018 End: 86-60-7435Sqyaprw encounter procedureRenee A OttFacility:[facility] Hospitaltart: 95-86-7679Jkzkcrf encounter procedureAlemelisa Fisher DRAMA TEACHER-NURSE LEADER Work Phone: [facility] [employer] System Procedures DateProcedureProcedure DetailPerforming ClinicianStart: 10-76-4585Jowgc depression screening assessmentMichael Badik DO Work Phone: Start: 72-53-9371VBCU SCAN CENTRAL SKELETALAlemelisa Fisher DRAMA TEACHER-NURSE LEADER Work Phone: Start: 85-60-3049Obybeahru streptococcus group a Thanh Fisher DRAMA TEACHER-NURSE LEADER Work Phone: Start: 04-24-4233Oxuwr depression screening assessment Thanh Fisher DRAMA TEACHER-NURSE LEADER Work Phone: Start: 93-17-9807Nsnue depression screening assessment Thanh Fisher APRN-NURSE LEADER Work Phone: Start: 02-29-5080PznfrnqnjlvEnzuqdvbv Rojas APRN-NURSE LEADER Work Phone: Plan of Treatment DateCare ActivityDetailAuthorStart: 91-85-0908Cwmzntttx for malignant neoplasm of colonColonoscopyProC[facility] Clinic [facility] SystemStart: 01-27-2026 End: 08-57-9907Hnqhoal encounter jsiencgjj87/09/2026 11:00 AM EDT Office Visit [facility] [address] [place] [address] Thanh Fisher APRN-CNP [address], [place] [address] [facility] MedicineStart: 61-67-5537Sqxve BMI ScreeningAdult BMI ScreeningProCleveland Clinic [facility] SystemStart: 21-58-6403Skvenpygti ScreeningDepression ScreeningBrecksville VA / [facility] SystemStart: 62-66-7132Eenf Risk ScreeningFall Risk ScreeningProC[facility] Clinic [facility] SystemStart: 09-08-2026Medicare Annual Wellness VisitMedicare Annual Wellness VisitBrecksville VA / [facility] Hospital SystemStart: 68-06-7985Bzomtmi ScreeningTobacco Screening [facility] SystemStart: 80-08-3676Yuskl BMI ScreeningAdult BMI Screening [facility] SystemStart: 04-88-4630Cjfdvty ScreeningTobacco Screening [facility] SystemStart: 03-23-2025 End: 33-39-8443Xvecaie encounter /03/2025 9:15 AM EST Appointment [facility] - M[facility]ography/DEXA Imaging [address] [place] [address] [facility] - Mammography/DEXA ImagingStart: 91-60-2472Iimiw BMI ScreeningAdult BMI Screening [facility] Hollytart: 61-92-5174Cfogomx ScreeningTobacco Screening ProMEssent[facility] Health SystemStart: 01-26-2025 End: 95-90-2097GEO Breast - bilateral screeningMammography screening bilateral with CAD Imaging Routine Encounter for screening mammogram for malignant neoplasm of breast Expected: 01/26/2025, Expires: 01/26/2026[facility] Work Phone: Comment on above:Expected: 01/26/2025, Expires: 01/26/2026Start: 01-26-2025 End: 56-75-7833Brkqpew encounter khvcyfrgv67/08/2025 9:30 AM EDT Office Visit [facility] [address] [place] [address] [place] [address] Tylor De La Rosa, [address] [place] [address], [facility] [address], [address] [place] [id number] [facility] Family MedicineStart: 81-65-0239Wuylr BMI ScreeningAdult BMI ScreeningProC[facility] Clinic [facility] SystemStart: 82-03-9836Kuzqvlfasf ScreeningDepression ScreeningProC[facility] Clinic [facility] SystemStart: 84-41-4214Otyl Risk ScreeningFall Risk ScreeningBrecksville [facility] SystemStart: 09-04-2025Medicare Annual Wellness VisitMedicare Annual Wellness VisitBrecksville VA / [facility] SystemStart: 72-80-4221Tiltqfb ScreeningTobacco ScreeningProC[facility] Clinic [facility] SystemStart: 08-08-0394GEGUU-19 Vaccine ( season)COVID-19 Vaccine ( season)[facility] SystemStart: 99-24-9293Feuegspdn vaccinationInfluenza VaccineBrecksville VA / [facility] SystemStart: 09-03-2024 End: 58-78-6241QF Cervical spine WO contrastCT cervical spine without contrast Imaging Routine Neck pain Expected: 09/03/2024, Expires: 09/03/2025[facility] SystemComment on above:Expected: 09/03/2024, Expires: 09/03/2025Start: 09-03-2024 End: 71-12-6991XA Brain WO contrastMR brain without contrast Imaging Routine New onset headache Persistent headaches Dizziness Expected: 09/03/2024, Expires: 09/03/2025ProBDNA Work Phone: Comment on above:Expected: 09/03/2024, Expires: 09/03/2025Start: 66-83-2292APyS,Tdap and Td Vaccines (2 - Td or Tdap)DTaP,Tdap and Td Vaccines (2 - Td or Tdap)[facility] SystemStart: 34-01-0650Pmayl BMI ScreeningAdult BMI ScreeningProC[facility] Clinic [facility] SystemStart: 34-78-0089Gxqfkhm ScreeningTobacco ScreeningBrecksville [facility] SystemStart: 04-23-2024 End: 72-47-9315Ctebrdq encounter ppbatmliw19/04/2024 8:00 AM EST Office Visit [facility] [address] [place] [address] Thanh Fisher, LISANDRA-NURSE LEADER [address] [place] [address], [place] [address] [facility] Physicians Family MedicineStart: 01-23-2024 End: 31-38-2836QCE Breast - bilateral screeningMammography screening bilateral with CAD Imaging Routine Medicare annual wellness visit, subsequentEncounter for screening mammogram for malignant neoplasm of breast Expected: 01/23/2024, Expires: 01/22/2025ProBDNA Work Phone: Comment on above:Expected: 01/23/2024, Expires: 01/22/2025Start: 01-23-2024 End: 53-30-3717TFX Skeletal system Views for bone densityDexa scan central skeletal Imaging Routine Medicare annual wellness visit, subsequent Encounter forscreening for osteoporosis Primary osteoarthritis involving multiple joints Other specified disorders of bone density and structure, other site Expected: 01/23/2024, Expires: 01/22/2025ProFayette County Memorial HospitalTriCipher SystemComment on above:Expected: 01/23/2024, Expires: 01/22/2025Start: 01-23-2024 End: 75-64-5912Kbogcta D 25 hydroxyVitamin D 25 hydroxy Lab Routine Medicare annual wellness visit, subsequent Restless leg Vitamin D deficiency Expected: 01/23/2024 (Approximate), Expires: 01/22/2025ProC[facility] Clinic [facility] SystemComment on above:Expected: 01/23/2024 (Approximate), Expires: 01/22/2025Start: 01-23-2024 End: 85-91-6591Fbidyqe encounter smkhnfudh70/04/2024 9:00 AM EDT Office Visit [facility] [address] [place] [address] Thanh Fisher APRN-NURSE LEADER [address] [place] [address] [facility] Phys[facility] Family [facility] Hospitaltart: 98-84-3941BVMZT-19 Vaccine ()COVID-19 Vaccine ()[facility] SystemStart: 47-39-4049AULHZ-19 Vaccine ( season)COVID-19 Vaccine ()[facility] Start: 33-92-2140Zyofmddfc vaccinationInfluenza VaccineBrecksville [facility] Start: 48-15-3115Dmavcqfcfm ScreeningDepression ScreeningBrecksville [facility] Start: 30-92-7881Hkph Risk ScreeningFall Risk ScreeningCommunity [facility] Medical Center Start: 08-28-2024Medicare Annual Wellness VisitMedicare Annual Wellness Visit [facility] SystemStart: 55-37-6356LVGQP-19 Vaccine ( season) COVID-19 Vaccine ( season)[facility] SystemStart: 01-19-2023 Influenza vaccinationInfluenza VaccineBrecksville VA / [facility] SystemStart: 02-08-2002 Administration of varicella zoster vaccineZoster (Shingles) Vaccine (1 of 2) [facility] End: 75-66-0078QQM W Auto Differential panel - BloodCBC auto differential Lab Routine Medicare annual wellness visit, subsequent Restless leg 1 Occurrences starting 01/23/2024 until 01/22/2025ProFayette County Memorial HospitalTriCipher Beaumont HospitalComment on above:1 Occurrences starting 01/23/2024 until 01/22/2025 End: 04-86-3334Qzszrvjbrtwea metabolic 2000 panel - Serum or PlasmaComprehensive metabolic panel Lab Routine Medicare annual wellness visit, subsequent 1 Occurrences starting 01/23/2024 until 01/22/2025[facility] CenterTriCipher SystemComment on above:1 Occurrences starting 01/23/2024 until 01/22/2025 End: 44-16-1965Vkwldnsfnxdhbb vitamin b-12Vitamin B12 Lab Routine Medicare annual wellness visit, subsequent Restless leg Vitamin B deficiency 1 Occurrences starting 01/23/2024 until 01/22/2025[facility] CenterTriCipher Beaumont HospitalComment on above:1 Occurrences starting 01/23/2024 until 01/22/2025 End: 55-01-0337Ctfxa 1996 panel - Serum or PlasmaLipid profile Lab Routine Medicare annual wellness visit, subsequent Encounter for lipid screening for cardiovascular disease 1 Occurrences starting 01/23/2024 until 01/22/2025 [facility] AGlobal Tech SystemComment on above:1 Occurrences starting 01/23/2024 until 01/22/2025 Immunizations Immunization DateImmunizationNotesCare CyjdeewhZzlnoblb42-31-3412mjfaaoe, mumps and rubella virus vaccineAlexandra Fisher DRAMA TEACHER-NURSE LEADER Work Phone: [facility] CenterTri[facility]ipher Stnywr76-33-8354saglqnh toxoid, reduced diphtheria toxoid, and acellular pertussis vaccine, adsorbedAlexandra Fisher DRAMA TEACHER-NURSE LEADER Work Phone: [facility] CenterTriCipher Beaumont HospitalNEGATED: Highlighted row has not occurred!71-39-9386ptdjdkper virus vaccine, unspecified formulationAlexandra Fisher DRAMA TEACHER-NURSE LEADER Work Phone: [facility] CenterStorybirdComment on above:Deferred: Patient RefusedNEGATED: Highlighted row has not occurred!31-97-5879prgzhagxgznp conjugate vaccine, 7 valentAlexandra Fisher DRAMA TEACHER-NURSE LEADER Work Phone: [facility] CenterTriCipher Beaumont HospitalComment on above:Deferred: Patient RefusedNEGATED: Highlighted row has not occurred!60-93-1201pnioaz vaccine, liveAlexandra Fisher DRAMA TEACHER-NURSE LEADER Work Phone: [facility] AGlobal Tech SystemComment on above:Deferred: Patient RefusedNEGATED: Highlighted row has not occurred!80-22-6490kozfajsdejrm conjugate vaccine, 13 valentAlexandra Fisher DRAMA TEACHER-NURSE LEADER Work Phone: ProF[facility] HospitalTriCipher SystemComment on above:Deferred: Patient Refused Payers DatePayer CategoryPayerPolicy [id number] MEDICARE ANTH MEDICARE ADVANTAGE [id number] 2020-Present [phone] [address] [place] [id number] 2021Medicarecare HMOANTHEM MEDICARE Member Subscriber Plan / Payer (Effective 2020-Present) Name: Dora Cortez Relation to Subscriber: Self Name: Dora Cortez Payer ID: [id number] (NAIC) Group ID: [id number] Type: Not on file Address: [address] [place] [id number] [id number] [id number]-[id number] [id number] [id number] Social History DateTypeDetailFacilityStart: 06-11-2020 End: 09-35-6865Igc Assigned At [facility] Yuanfen~Flow™ Other Start: 56-18-2086Naalpyq smoking status NHISNever smoked tobaccoCaroMont Regional Medical Center - Mount Hollytart: 75-20-9896Eoeeukw use and exposure Smokeless tobacco non-userCaroMont Regional Medical Center - Mount Hollytart: 05-28-2023 End: 71-15-2176Uqmdcld intakeEx-drinker (finding)[facility] Hollytart: 06-11-2020 End: 06-27-5849Ctqmgdf of Social functionCommunity Regional Medical CenterAdolescent depression screening poqeoaivbw3AfjXfbczu Health SystemStart: 43-27-9720Fyc Assigned At [facility] CareNot on fileTr[facility] AGlobal Tech [facility] Community Hospitaltart: 65-87-4149VbtTsxral (finding)[facility] Clinical Notes 08-17-2021 to 02-02-2025 Note Date & DxwyKvutIalmgwic70-00-1464 Miscellaneous Notes* Telephone Encounter - Leslye Lovelace CMA - 02/02/2025 1:55 PM EDT Patient called into office of lab results, verbalized understanding with patient. Patient is wanting to know if provider is going to prescribe the 50,000 units of vitamin D that is recommended. Please advise? * Telephone Encounter - Tylor De La Rosa DO - 02/02/2025 1:55 PM EDT Prescription for cholecalciferol 85993 units 1 capsule twice weekly sent into [place], [place]. Thank you documented in this encounterCommunity Regional Medical Center09-15-2025 Telephone encounter Note* Telephone Encounter - Leslye Lovelace CMA - 02/02/2025 1:55 PM EDT Patient called into office of lab results, verbalized understanding with patient. Patient is wanting to know if provider is going to prescribe the 50,000 units of vitamin D that is recommended. Please advise? [facility]09-15-2025 Telephone encounter Note* Telephone Encounter - Tylor De La Rosa DO - 02/02/2025 1:55 PM EDT Prescription for cholecalciferol 80567 units 1 capsule twice weekly sent into [place], [place]. Thank you [facility]09-10-2025 Miscellaneous Notes* Telephone Encounter - Shellie Vera CNA - 01/28/2025 5:11 PM EDT Attempted to call patient, left VM ----- Message from Tylor De La Rosa DO sent at 01/28/2025 5:14 PM EDT ----- Please let Mrs. Cortez know that her lab results show or vitamin-D levels are low at 17. Normal ranges between 30 and 100. I would recommend her changing her vitamin-D supplement 50,000 units twice a week for the next 6 months to see if that will raise her levels to the normal range. Levels can affect not only bone health and strength but also affect energy levels, cause muscle aches and pain. Thank you ----- Message ----- From: Ariana, Background User Sent: 01/27/2025 11:37 AM EDT To: Tylor De La Rosa DO documented in this encounterLakeHealth TriPoint Medical CenterStorybird09-10-2025 Telephone encounter Note* Telephone Encounter - Shellie Vera CNA - 01/28/2025 5:11 PM EDT Attempted to call patient, left VM ----- Message from Tylor De La Rosa DO sent at 01/28/2025 5:14 PM EDT ----- Please let Mrs. Cortez know that her lab results show or vitamin-D levels are low at 17. Normal ranges between 30 and 100. I would recommend her changing her vitamin-D supplement 50,000 units twice a week for the next 6 months to see if that will raise her levels to the normal range. Levels can affect not only bone health and strength but also affect energy levels, cause muscle aches and pain. Thank you ----- Message ----- From: Lab, Background User Sent: 01/27/2025 11:37 AM EDT To: Tylor De La Rosa DO [facility]alki [id number] History of Present illness Narrative* Tylor De La Rosa DO - 01/26/2025 9:30 AM EDT Subjective SUBJECTIVE: Patient ID: Dora Cortez is a 74 y.o. female, established patient, who presents for a Medicare Annual Wellness exam. 74-year-old female that presented to clinic for annual Medicare wellness exam. Patient with a history hypertension, gastroesophageal reflux disorder, irritable bowel syndrome with diarrhea, vitamin-Ddeficiency, recurrent tension type headaches, locking finger, restless leg syndrome. Patient's concerns today include The following portions of the patient's history were reviewed and updated as appropriate: allergies, current medications, past family history, past medical history, past social history, past surgicalhistory and problem list. AWV FLOWSHEET : Lifestyle Assessment Do you smoke or use smokeless tobacco?: No If you smoke or use smokeless tobacco, are you ready to quit?: NA Are you exposed to secondhand smoke?: No On average, how many drinks of alcohol do you consume in a week?: None Do you exercise for 30 or more minutes on average at least 3 days a week?: Often Do you have any tooth, denture, or oral problems?: (!) Yes Do you snore or has anyone told you that you snore?: No Do you try to eat a balanced diet?: Yes Do you experience leakage of urine, also known as urinary incontinence?: Never Do you have difficulty bathing?: No Do you have difficulty dressing?: No Do you have difficulty grooming?: No Do you have difficulty eating?: No Do you have difficulty getting out of a chair?: No Do you have difficulty walking?: No Do you have difficulty using the toilet?: No Do you have difficulty doing laundry?: No Do you have difficulty with housekeeping?: No Do you have difficulty preparing a meal?: No Do you have difficulty shopping?: No Do you have difficulty using transportation?: No Do you have difficulty paying bills?: No Do you have difficulty managing finances?: No Fall Risk Fall Risk Assessment Completed?: Yes Have you fallen in the past year?: No Are you worried about falling?: (!) Yes Do you feel unsteady when standing or walking?: No Risk Stratification: Moderate Risk Depression Screening Little interest or pleasure in doing things: Not at all Feeling down, depressed, or hopeless: Not at all Trouble falling or staying asleep, or sleeping too much: (!) Nearly every day Feeling tired or having little energy: Not at all Poor appetite or overeating: Not at all Feeling bad about yourself - or that you are a failure or have let yourself or your family down: Not at all Trouble concentrating on things, such as reading the newspaper or watching television: Not at all Moving or speaking so slowly that other people could have noticed. Or the opposite - being so fidgety or restless that you have been moving around a lot more than usual: Not at all Thoughts that you would be better off , or of hurting yourself in some way: Not at all PEG Scale What number best describes your pain on average in the past week?: 4 What number best describes how, during the past week, pain has interfered with your enjoyment of life?: 1 What number best describes how, during the past week, pain has interfered with your general activity?: 1 PEG Pain Total Score: 2 Safety Assessment Do you have throw rugs on the floor?: No Do you feel safe at your home?: Yes Do you feel unsteady when walking?: No Are you having difficulty with driving?: No Do you have trouble seeing?: (!) Yes (glasses for reading) Do you use a bath bar/seat?: No Do you use a raised toilet seat?: No Do you use a cane?: No Do you use a walker?: No Do you use a wheelchair?: No Hearing Assessment Do you strain or struggle to hear/understand conversations?: No Do you have trouble hearing the television or radio when others do not?: No Does your family ever voice concerns about your hearing?: No Do you wear hearing aid/s?: No Personal Health During the past 4 weeks, how would you rate your overall health?: Very Good Do you understand how to take all of your medications?: Yes How confident are you that you can control and manage most of your health problems?: Very confident In the past 12 months, how many times have you been hospitalized?: None End of Life Planning Do you have a living will?: (!) No Do you have a durable power of assembler corncob pipes?: (!) No Cognitive Screening Do you have trouble remembering or recalling facts or events?: (!) Yes (Minor Details sometimes) Do family members or caregivers report that you have difficulty remembering things?: (!) Yes Clock Drawing Test: Normal REVIEW OF SYSTEMS: Review of Systems Constitutional: Negative for appetite change (She states that she has been busy so eating once a day primarily) and fatigue. Respiratory: Negative for shortness of breath. Cardiovascular: Negative for chest pain, palpitations and leg swelling. Does not check blood pressure unless she gets a headache Gastrointestinal: Negative for blood in stool, constipation and diarrhea. She states that she has occasional heartburn symptoms associated with nausea. She states that will eat cereal which helps with symptoms. Musculoskeletal: Positive for arthralgias. She takes meloxicam routinely for hand arthralgia. She states that locking in left index finger improved. She does have limited ROM in index finger at metacarpal joint. She states that she start magnesium supplement for nocturnal leg cramps but had metal taste in mouth all day Skin: Sees Dermatology every 6 months for recurrent basal and squamous cell cancer and in May has blue light treatment Neurological: Positive for headaches (Occasional headaches and typically associated with elevated BP). Negative for dizziness and light-headedness. She states that occurs nightly. She describes as entire body feeling jumpy not just lower extremities. She had been on benadryl and melatonin which seemed to worsen symptoms. She states that requip not effective Objective PHYSICAL EXAMINATION: Vitals: 01/26/25 0924 BP: 118/82 BP Site: Left Arm BP Postition: Sitting Pulse: 60 Temp: 36.6 C (97.9 F) TempSrc: Oral SpO2: 95% Weight: 53.5 kg (118 lb) Height: 151 cm (4' 11.45 ) Physical Exam Vitals reviewed. Constitutional: General: She is not in acute distress. Appearance: She is not ill-appearing or toxic-appearing. HENT: Head: Normocephalic and atraumatic. Right Ear: Tympanic membrane, ear canal and external ear normal. Left Ear: Tympanic membrane, ear canal and external ear normal. Mouth/Throat: Mouth: Mucous membranes are moist. Pharynx: No oropharyngeal exudate or posterior oropharyngeal erythema. Eyes: General: Right eye: No discharge. Left eye: No discharge. Extraocular Movements: Extraocular movements intact. Conjunctiva/sclera: Conjunctivae normal. Pupils: Pupils are equal, round, and reactive to light. Cardiovascular: Rate and Rhythm: Normal rate and regular rhythm. Heart sounds: No murmur heard. Pulmonary: Effort: Pulmonary effort is normal. Breath sounds: Normal breath sounds. Abdominal: General: Bowel sounds are normal. There is no distension. Palpations: Abdomen is soft. Musculoskeletal: Cervical back: Neck supple. Right lower leg: No edema. Left lower leg: No edema. Lymphadenopathy: Cervical: No cervical adenopathy. Skin: Capillary Refill: Capillary refill takes less than 2 seconds. Neurological: Mental Status: She is alert. Cranial Nerves: No cranial nerve deficit. Deep Tendon Reflexes: Reflexes normal. Assessment/Plan ASSESSMENT/PLAN Dora was seen today for medicare annual wellness. Diagnoses and all orders for this visit: Medicare annual wellness visit, subsequent - CBC; Future - Iron and TIBC; Future - Comprehensive metabolic panel; Future - Lipid panel; Future - Vitamin D 25 hydroxy; Future - Vitamin B12; Future Restless leg - CBC; Future - Iron and TIBC; Future - Comprehensive metabolic panel; Future Encounter for screening mammogram for malignant neoplasm of breast - Mammography screening bilateral with CAD; Future Vitamin D deficiency - Vitamin D 25 hydroxy; Future Vitamin B deficiency - CBC; Future - Vitamin B12; Future Encounter for lipid screening for cardiovascular disease - Lipid panel; Future Continue with current medications. Ordered labs including CBC, iron studies, comprehensive metabolic panel, lipid panel, vitamin-D levels, vitamin B12, Ordered mammogram to evaluate for breast cancer Follow-up: 12 months for Medicare wellness exam - Tylor De La Rosa DO 02/01/25 12:14 AM documented in this encounterLakeHealth TriPoint Medical CenterNational Payment Network [facility] [id number] History of Present illness Narrative* Thanh Fisher APRN-NURSE LEADER - 09/03/2024 11:00 AM EDT Subjective Patient ID: Dora Cortez is a 74 y.o. female. CHACHO John presents to the office with concern for right-sided head pain. She reports symptoms have beenongoing for about 3 weeks now and continue to persist and worsen. She reports pain seems to start at the base of her head or upper neck and shoots across the top of her head and goes to the front of her face. She reports she has a constant dull pain with those intermittent shooting pains. She reports she is unsure if she is having neck pain as she has been completing extra work around the home. She denies any injury that could have caused this pain. She denies any recent illness, except for some occasional allergies. She reports she has no history of headaches or migraines. She reports she does feel little dizzy or off balance with this new headache. She denies fever, fatigue, chills, chestpain, body ache. However she does overall feel like something is full off . She reports she did have an episode where she ran into a door and hit the left side of her head butthis occurred on 08/19/2024 and was after this headache started. The following portions of the patient's history were reviewed and updated as appropriate: allergies, current medications, past family history, past medical history, past social history, past surgicalhistory, problem list, and medication reconciliation was completed including current medication andpost discharge medication. Review of Systems Constitutional: Negative for chills, diaphoresis, fatigue, fever and unexpected weight change. HENT: Positive for rhinorrhea. Eyes: Negative for visual disturbance. Respiratory: Negative. Cardiovascular: Negative. Neurological: Positive for dizziness and headaches. Objective Physical Exam Vitals and nursing note reviewed. Constitutional: General: She is not in acute distress. Appearance: Normal appearance. She is not ill-appearing. HENT: Head: Normocephalic and atraumatic. Right Ear: Tympanic membrane, ear canal and external ear normal. Left Ear: Tympanic membrane, ear canal and external ear normal. Ears: Comments: Some fluid to right TM Nose: Nose normal. No congestion or rhinorrhea. Right Sinus: No maxillary sinus tenderness or frontal sinus tenderness. Left Sinus: No maxillary sinus tenderness or frontal sinus tenderness. Mouth/Throat: Mouth: Mucous membranes are moist. Pharynx: Oropharynx is clear. Eyes: Extraocular Movements: Extraocular movements intact. Conjunctiva/sclera: Conjunctivae normal. Pupils: Pupils are equal, round, and reactive to light. Cardiovascular: Rate and Rhythm: Normal rate and regular rhythm. Pulses: Normal pulses. Heart sounds: Normal heart sounds. No murmur heard. Pulmonary: Effort: Pulmonary effort is normal. No respiratory distress. Breath sounds: Normal breath sounds. No stridor. No wheezing, rhonchi or rales. Chest: Chest wall: No tenderness. Musculoskeletal: Cervical back: Normal range of motion and neck supple. Tenderness (To right cervical spine) present. No rigidity. Right lower leg: No edema. Left lower leg: No edema. Comments: Strong equal strength bilaterally Lymphadenopathy: Cervical: No cervical adenopathy. Skin: General: Skin is dry. Findings: No erythema or rash. Neurological: General: No focal deficit present. Mental Status: She is alert and oriented to person, place, and time. Psychiatric: Mood and Affect: Mood normal. Behavior: Behavior normal. Assessment/Plan She had CT of the brain completed on 04/07/2022 and was negative. She has greater than the age of 50 and has new sudden onset and persistent headache, associated with dizziness, I would like to order MRI of the brain. We will also order CT cervical spine as she has also complained of neck pain. She reports she is not up-to-date on vision exam, I recommend she get up-to-date. Serous otitis media to right ear recommend daily antihistamine. We will call with results and let her know if I need to see her sooner. She will get wellness scheduled. Dora was seen today for headache. Diagnoses and all orders for this visit: New onset headache - MR brain without contrast; Future Persistent headaches - MR brain without contrast; Future Dizziness - MR brain without contrast; Future Neck pain - CT cervical spine without contrast; Future - cyclobenzaprine (FLEXERIL) 5 mg tablet; Take 1 tablet (5 mg total) by mouth 2 (two) times a day as needed for muscle spasms. Other orders - loratadine (CLARITIN) 10 mg tablet; Take 1 tablet (10 mg total) by mouth in the morning. SHAINA Ogden 09/03/24 1130 documented in this encounterCommunity Regional Medical Center10-16-2024 History of Present illness Narrative* SHAINA Ogden - 03/05/2024 9:40 AM EDT Subjective Patient ID: Dora Cortez is a [...] as she feels everything is stuck in herchest and feels like throat is on fire. [...] in for bronchitis and wheezing Azithromycin Medrol marisol Continue symptomatic treatment. She will let me [...] SHAINA Ogden 03/05/24 1017 documented in this encounterProMedica Health [id number] Miscellaneous Notes* Telephone Encounter - Nereyda Lovelace CNA - 02/11/2024 1:14 PM EDT Dora called office to inform provider [facility] pharmacy put Requip on hold. MAGI called [facility] to clarify patient is to be taking medication once daily at bedtime. documented in this encounterCommunity Regional Medical Center09-23-2024 Telephone encounter Note* Telephone Encounter - Nereyda Lovelace CNA - 02/11/2024 1:14 PM EDT Dora called office to inform provider [facility] pharmacy put Requip on hold. MAGI called [facility] to clarify patient is to be taking medication once daily at bedtime. [facility]09-05-2024 Miscellaneous Notes* Telephone Encounter - Kaur Beverly CMA - 01/24/2024 4:07 PM EDT ----- Message from SHAINA Ogden sent at 01/24/2024 2:57 PM EDT ----- Vitamin D remains deficient. Supplement sent. Otherwise normal labs. * Telephone Encounter - Kaur Beverly CMA - 01/24/2024 4:07 PM EDT Called patient no answer, left message to call back * Telephone Encounter - Kaur Beverly CMA - 01/24/2024 4:07 PM EDT Patient called back into the office I did give her the results, she verbalized understanding. documented in this encounterCommunity Regional Medical Center09-05-2024 Telephone encounter Note* Telephone Encounter - Kaur Beverly CMA - 01/24/2024 4:07 PM EDT ----- Message from SHAINA Ogden sent at 01/24/2024 2:57 PM EDT ----- Vitamin D remains deficient. Supplement sent. Otherwise normal labs. [facility]09-05-2024 Telephone encounter Note* Telephone Encounter - Kaur Beverly CMA - 01/24/2024 4:07 PM EDT Called patient no answer, left message to call back [facility]09-05-2024 Telephone encounter Note* Telephone Encounter - Kaur Beverly CMA - 01/24/2024 4:07 PM EDT Patient called back into the office I did give her the results, she verbalized understanding. [facility]09-04-2024 History of Present illness Narrative* SHAINA Ogden - 01/23/2024 9:00 AM EDT Subjective SUBJECTIVE: Patient ID: Dora Cortez is a 73 y.o. female who presents for a Medicare Annual Wellness exam. HPI Dora presents to the office for MAW. She has a few concerns today. She reports she has a lot of arthritic pains to bilateral hands. Pain is constant 5 but can get worse. She reports applying voltaren gel and taking ibuprofen. Sometimes ibuprofen can cause GI side effects. Also, she reports the requip 0.25 mg does not seem to be effective. Lastly, Dora reports she feels like the left side of her face is swollen around her eye and maxillary area and into her left ear. Reports no congestion. No ear pain, no recent illness, fever, body aches, fatigue, chills. Immunization History Administered Date(s) Administered COVID-19, mRNA, LNP-S, PF, 30mcg/0.3mL Dose 07/13/2020, 08/03/2020, 03/21/2021 Covid-19,mrna, Lnp-s, Pf, 50mcg/0.5ml 12+ 03/30/2023 MMR 12/19/2018 Tdap 06/12/2014 The following portions of the patient's history were reviewed and updated as appropriate: allergies, current medications, past family history, past medical history, past social history, past surgicalhistory and problem list. AWV FLOWSHEET : Lifestyle Assessment Do you smoke or use smokeless tobacco?: No If you smoke or use smokeless tobacco, are you ready to quit?: NA Are you exposed to secondhand smoke?: No On average, how many drinks of alcohol do you consume in a week?: None Do you exercise for 30 or more minutes on average at least 3 days a week?: Often Do you have any tooth, denture, or oral problems?: (!) Yes Do you snore or has anyone told you that you snore?: No Do you try to eat a balanced diet?: Yes Do you experience leakage of urine, also known as urinary incontinence?: Never Do you have difficulty performing any of these activities? (check all that apply): None Do you have difficulty performing any of these activities? (check all that apply): None Fall Risk Fall Risk Assessment Completed?: Yes Have you fallen in the past year?: No Are you worried about falling?: (!) Yes Do you feel unsteady when standing or walking?: No Risk Stratification: Moderate Risk Depression Screening Little interest or pleasure in doing things: Not at all Feeling down, depressed, or hopeless: Not at all Trouble falling or staying asleep, or sleeping too much: (!) Nearly every day Feeling tired or having little energy: Not at all Poor appetite or overeating: Not at all Feeling bad about yourself - or that you are a failure or have let yourself or your family down: Not at all Trouble concentrating on things, such as reading the newspaper or watching television: Not at all Moving or speaking so slowly that other people could have noticed. Or the opposite - being so fidgety or restless that you have been moving around a lot more than usual: Not at all Thoughts that you would be better off , or of hurting yourself in some way: Not at all PEG Scale What number best describes your pain on average in the past week?: 5 What number best describes how, during the past week, pain has interfered with your enjoyment of life?: 5 What number best describes how, during the past week, pain has interfered with your general activity?: 5 PEG Pain Total Score: 5 Safety Assessment Do you have throw rugs on the floor?: No Do you feel safe at your home?: Yes Do you feel unsteady when walking?: No Are you having difficulty with driving?: No Do you have trouble seeing?: No What assistive device do you use? (check all that apply): None Hearing Assessment Do you strain or struggle to hear/understand conversations?: No Do you have trouble hearing the television or radio when others do not?: No Does your family ever voice concerns about your hearing?: No Do you wear hearing aid/s?: No Personal Health During the past 4 weeks, how would you rate your overall health?: Very Good Do you understand how to take all of your medications?: Yes How confident are you that you can control and manage most of your health problems?: Very confident In the past 12 months, how many times have you been hospitalized?: None End of Life Planning Do you have a living will?: (!) No Do you have a durable power of assembler corncob pipes?: (!) No Cognitive Screening Do you have trouble remembering or recalling facts or events?: No Do family members or caregivers report that you have difficulty remembering things?: No Clock Drawing Test: Normal REVIEW OF SYSTEMS: Review of Systems Constitutional: Negative for chills, fatigue, fever and unexpected weight change. HENT: Negative. Respiratory: Negative for chest tightness, shortness of breath and wheezing. Cardiovascular: Negative for chest pain, palpitations and leg swelling. Gastrointestinal: Negative for abdominal pain and blood in stool. Genitourinary: Negative for dysuria and hematuria. Musculoskeletal: Positive for arthralgias. Negative for myalgias. Skin: Negative. Neurological: Positive for light-headedness. Negative for dizziness, syncope, weakness and numbness. Psychiatric/Behavioral: Positive for sleep disturbance. Objective PHYSICAL EXAMINATION: Vitals: 01/23/24 0857 BP: 122/76 BP Site: Left Arm BP Postition: Sitting Pulse: 63 Temp: 36.6 C (97.9 F) TempSrc: Oral SpO2: 99% Weight: 55.9 kg (123 lb 3.2 oz) Physical Exam Vitals and nursing note reviewed. Constitutional: General: She is not in acute distress. Appearance: Normal appearance. She is not ill-appearing. HENT: Head: Normocephalic and atraumatic. Right Ear: Tympanic membrane, ear canal and external ear normal. Left Ear: Tympanic membrane, ear canal and external ear normal. Ears: Comments: No abnormality noted Nose: Nose normal. Right Sinus: No maxillary sinus tenderness or frontal sinus tenderness. Left Sinus: No maxillary sinus tenderness or frontal sinus tenderness. Comments: I do not notice facial swelling. Mouth/Throat: Mouth: Mucous membranes are moist. Pharynx: Oropharynx is clear. Eyes: Extraocular Movements: Extraocular movements intact. Pupils: Pupils are equal, round, and reactive to light. Neck: Vascular: No carotid bruit. Cardiovascular: Rate and Rhythm: Normal rate and regular rhythm. Pulses: Normal pulses. Heart sounds: Normal heart sounds. No murmur heard. Pulmonary: Effort: Pulmonary effort is normal. No respiratory distress. Breath sounds: Normal breath sounds. No wheezing. Abdominal: General: Bowel sounds are normal. There is no distension. Palpations: Abdomen is soft. There is no mass. Tenderness: There is no abdominal tenderness. There is no guarding or rebound. Hernia: No hernia is present. Musculoskeletal: General: Normal range of motion. Cervical back: Normal range of motion. No rigidity or tenderness. Right lower leg: No edema. Left lower leg: No edema. Lymphadenopathy: Cervical: No cervical adenopathy. Skin: General: Skin is warm and dry. Capillary Refill: Capillary refill takes less than 2 seconds. Findings: No erythema or rash. Neurological: General: No focal deficit present. Mental Status: She is alert. Psychiatric: Mood and Affect: Mood normal. Behavior: Behavior normal. Assessment/Plan ASSESSMENT/PLAN Health maintenance reviewed. Colon can screening up to date, colonoscopy completed 08/2022- due at 12 years. Mammogram due. Order placed. Sent to [place] per patient request. Wellness labs due- ordered. Dexascan due, order placed. Continue vitamin D and calcium for osteoporosis. Discussed medications for osteoporosis. Education provided. She will schedule dental exam and review education and let me know if she would be agreeable for medication. Continue home exercises for finger pain and stiffness. Start meloxicam daily for osteoarthritis to bilateral hands. Dora admits to some GI upset when she takes too much ibuprofen , I will start lowe dosage of protonix for prophylaxis. Discussed if she continues with GI upset we may need to increase dosage. Increase requip for restless leg syndrome. However, we will ensure labs are not the cause of symptoms. Refill amlodipine for HTN. She will take routine antihistamine and nasal spray for left facial pressure and ear pressure. FU 3 months for restless leg syndrome and OA. Dora was seen today for medicare annual wellness. Diagnoses and all orders for this visit: Medicare annual wellness visit, subsequent - Mammography screening bilateral with CAD; Future - Dexa scan central skeletal; Future - Vitamin B12; Future - Vitamin D 25 hydroxy; Future - Lipid profile; Future - Comprehensive metabolic panel; Future - CBC auto differential; Future Encounter for lipid screening for cardiovascular disease - Lipid profile; Future Encounter for screening mammogram for malignant neoplasm of breast - Mammography screening bilateral with CAD; Future Encounter for screening for osteoporosis - Dexa scan central skeletal; Future Primary osteoarthritis involving multiple joints - Dexa scan central skeletal; Future Restless leg - Vitamin B12; Future - Vitamin D 25 hydroxy; Future - CBC auto differential; Future - rOPINIRole (REQUIP) 0.5 mg tablet; Take 1 tablet (0.5 mg total) by mouth 3 (three) times a day. Vitamin D deficiency - Vitamin D 25 hydroxy; Future Vitamin B deficiency - Vitamin B12; Future Other specified disorders of bone density and structure, other site - Dexa scan central skeletal; Future Other orders - amLODIPine (NORVASC) 10 mg tablet; Take 1 tablet (10 mg total) by mouth in the morning. - meloxicam (MOBIC) 7.5 mg tablet; Take 1 tablet (7.5 mg total) by mouth in the morning. - pantoprazole (PROTONIX) 20 mg EC tablet; Take 1 tablet (20 mg total) by mouth in the morning. No follow-ups on file. SHAINA Ogden 01/23/24 1409 [facility] of Present illness Narrative* SHAINA Ogden - 05/28/2023 11:45 AM EST Subjective Patient ID: Dora Cortez is a 73 y.o. female. CHACHO John presents to the office today for sick [...] past medical history, past social history, past surgicalhistory, problem list, and medication reconciliation was completed including current medication andpost discharge medication. Review of Systems Constitutional: Positive for fatigue. Negative for chills, diaphoresis, fever and unexpected weightchange. HENT: Positive for congestion, postnasal drip, rhinorrhea [...] SHAINA Ogden 05/28/23 1305 [facility] Evaluation note* Encounter Date Diagnosis Assessment Notes Treatment Notes Treatment Clinical Notes Oct, Contact with and (amaro spected) exposure to other viral communicable diseases (ICD-10 - Z20.828) Oct,Influenza A (ICD-10 - J10.1)Symptoms presented today are related to the Flu. May use OTC medications such as Mucinex DM, Flu meds, etc. Kids can use Dimatapp or Delsym. Continue tylenol/ibu for general discomfort. Encourage flui ds. Antibiotics will not treat the flu. Symptoms should improve within the next 4-7 days. Oct,ronchitis (ICD-10 - J40)Take medications as directed. Rest and increase fluid [...] weeks for the cough to go away Oct,therAdditional time spent conducting pre-visit phone call, screening for symptoms, instructions on social distancing, application and removal of PPE, and cleaning of examination room, equipment and supplies was preformed. Patient education given for testing methodology and results. Patient care instructions given in writting by [facility] document. [employer] [facility] Other 03-30-2022 Evaluation note* Encounter Date Diagnosis Assessment Notes Treatment Notes Treatment Clinical Notes Jul, Contact with and (amaro spected) exposure to other viral communicable diseases (ICD-10 - Z20.828) Jul,cute sinusitis, recurrence not specified, unspecified location (ICD-10 - J01.90) Drink plenty fluids, get plenty of rest. Take the Augmentin and Medrol Dosepak as prescribed until gone. Use the Flonase inhaler as prescribed until your symptoms improve. Follow-up with your family physician if no improvement in 3 to 5 days. Take Tylenol Motrin for aches pains or fevers. Jul,ther Additional time spent conducting pre-visit phone call, screening for symptoms, instructions on social distancing, application and removal of PPE, and cleaning of examination room, equipment and supplies was preformed. Patient education given for testing methodology and results. Patient care instructions given in writting by [employer] [facility] document. [employer] Other Evaluation note* Diagnosis Shortness of breath- Primary Acute non-recurrent maxillary sinusitis Acute bronchitis, unspecified organism [facility] Diagnosis Medicare annual wellness visit, subsequent- Primary Encounter for lipid screening for cardiovascular disease Encounter for screening mammogram for malignant neoplasm of breast Encounter for screening for osteoporosis Primary osteoarthritis involving multiple joints Restless leg Restless legs syndrome (RLS) Vitamin D deficiency Vitamin B deficiency Unspecified vitamin B deficiency Other specified disorders of bone density and structure, other site [facility] Diagnosis Acute bronchitis, unspecified organism- Primary Pharyngitis, unspecified etiology [facility] Diagnosis Medicare annual wellness visit, subsequent Encounter for screening for osteoporosis Primary osteoarthritis involving multiple joints Other specified disorders of bone density and structure, other site [facility] Diagnosis New onset headache- Primary Headache Persistent headaches Dizziness Dizziness and giddiness Neck pain Cervicalgia [facility] Diagnosis Medicare annual wellness visit, subsequent- Primary Restless leg Restless legs syndrome (RLS) Encounter for screening mammogram for malignant neoplasm of breast Vitamin D deficiency Vitamin B deficiency Unspecified vitamin B deficiency Encounter for lipid screening for cardiovascular disease [facility]* Diagnosis Vitamin D deficiency- Primary documented in this encounter [facility] [employer] SystemHistory general Narrative - Reported* Type Description Date Medical History osteoporosis Medical HistoryarthritisSurgical HistoryhysterectomySurgical History cholecystectomySurgical Historywisdom teethSurgical HistorycolonoscopySurgical Historyt & aHospitalization Historysee above [employer] [facility] Other InstructionsNot on filedocumented in this encounter [facility] [employer] SystemInstructionsNot on filedocumented in this encounter [facility] [employer] SystemInstructionsNot on filedocumented in this encounter [facility] [employer] SystemInstructions* Attachments The following attachments cannot be sent through Care Everywhere. * Osteoporosis (Honduran) * Romosozumab, ADULT (Honduran) * Denosumab, ADULT (Honduran) * Alendronate, ADULT (Honduran) documented in [facility] AGlobal Tech SystemInstructionsNot on file documented in this encounterProC[facility] SystemInstructionsNot on file documented in this encounterProNorthwest [facility] SystemInstructionsNot on file documented in this encounterProNorth[facility] SystemInstructionsNot on file documented in this encounterProC[facility] SystemInstructionsNot on file documented in this encounterProNorth[facility] SystemInstructionsNot on file documented in this encounterProC[facility] SystemInstructionsNot on file documented in this encounterProC[facility] SystemInstructionsNot on file documented in this encounterProC[facility] SystemInstructionsNot on file documented in this encounterB[facility] Summary Purpose Family History No Family History Records FoundNo Family History Records FoundNo Family History Records FoundNo Family History Records Found Advance Directives No Advanced Directives Records FoundNo Advanced Directives Records FoundNo Advanced Directives Records FoundNo Advanced Directives Records Found Additional Source Comments INFORMATION SOURCE (unrecogn ized section and content) DATE CREATED AUTHOR 07/09/2018 [facility] DATE CREATED AUTHOR AUTHOR'S ORGANIZ ATION 02/19/2022 [facility] [employer] DATE CREATED AUTHOR AUTHOR'S ORGANIZ ATION 01/27/2025 [facility] DATE CREATED AUTHOR AUTHOR'S ORGANIZ ATION 01/28/2025 [facility] REASON FOR VISIT (unrecogniz ed section and content) ReasonCommentsCoughShortness of BreathReasonOnset DateCommentsMed Refill 4ReasonCommentsMedicare Annual WellnessReasonCommentsSore ThroatX3 days, grandkids have StrepReasonOnset DateCommentsMedication Upfuvig7702/11/2024 ReasonCommentsHeadacheRt side of headReasonOnset AxysYpnhnwppXptxeui03/10/2025 ReasonCommentsmedicare annual wellnessReasonCommentsMed Refill Care Teams (unrecognized sec tion and content) Team MemberRelationshipSpecialtyStart DateEnd Date Thanh Fisher APRN-CNP PCP - GeneralNurse Practitioner11/08/22Team MemberRelationshipSpecialtyStart Date End Date Thanh Fisher APRN-CNP PCP - GeneralNurse Practitioner11/08/22Team MemberRelationshipSpecialtyStart Date End Date FisherThanh martin APRN-NURSE LEADER PCP - GeneralNurse Practitioner11/08/22Team MemberRelationshipSpecialtyStart Date End Date FisherThanh martin APRN-NURSE LEADER PCP - GeneralNurse Practitioner11/08/22Team MemberRelationshipSpecialtyStart Date End Date FisherThanh martin APRN-NURSE LEADER PCP - GeneralNurse Practitioner11/08/22Team MemberRelationshipSpecialtyStart Date End Date Thanh Fisher APRN-[facility] PCP - GeneralNurse Practitioner11/08/22Team MemberRelationshipSpecialtyStart Date End Date Thanh Fisher APRN-[facility] PCP - GeneralNurse Practitioner11/08/22Team MemberRelationshipSpecialtyStart Date End Date Thanh Fisher APRN-NURSE LEADER PCP - GeneralNurse Practitioner11/08/22Team MemberRelationshipSpecialtyStart Date End Date FisherThanh martin APRN-NURSE LEADER PCP - GeneralNurse Practitioner11/08/22Team MemberRelationshipSpecialtyStart Date End Date Thanh Fisher APRN-NURSE LEADER PCP - GeneralNurse Practitioner11/08/22Team MemberRelationshipSpecialtyStart Date End Date Thanh Fisher APRN-NURSE LEADER PCP - GeneralNurse Practitioner11/08/22Te MemberRelationshipSpecialtyStart Date End Date Thanh Fisher [facility] PCP - GeneralNurse Practitioner11/08/22 FOR RECORDS PERTAINING TO PATIENTS WHO ARE [...] BE BASED ON THE PRIMARY CLINICAL RECORDS. [facility] [employer] provides no warranty or guarantee of the accuracy or completeness of information in this document.
== END 2025-03-19 09:19 | disposition home or self-care (01) ==
LOC: MAMMO 09:19
PROVIDERS: PCP Nurse Practitioner Family; Visit Provider Nurse Practitioner Family
DX: Z12.31 Encounter for screening mammogram for malignant neoplasm of breast (principal); Z80.3 Family history of malignant neoplasm of breast; Z80.51 Family history of malignant neoplasm of kidney; Z80.8 Family history of malignant neoplasm of other organs or systems
CPT/HCPCS: 77063; 77067